=== PATIENT | female | born 1970 | race Caucasian/White ===

== ENCOUNTER 2023-02-07 08:47 | Outpatient (OUT) | payer OTHER, SELFPAY ==
[2023-02-07 09:16] LABS: Basophils Absolute Auto 0.1 10^3/uL (0.0-0.1); Basophils Percent Auto 0.8 % (0.2-2.0); Eosinophils Absolute Auto 0.1 10^3/uL (0.0-0.7); Eosinophils Percent Auto 1.4 % (0.9-7.0); Hematocrit 38.4 % (36.0-48.0); Hemoglobin 12.3 g/dL (12.0-16.0); Immature Granulocytes Abs Auto 0.02 10^3/uL (0.00-0.03); Immature Granulocytes Pct Auto 0.3 % (0.0-0.5); Lymphocytes Absolute Auto 2.6 10^3/uL (1.2-3.8); Lymphocytes Percent Auto 32.2 % (20.5-60.0); Mean Corpuscular Hemoglobin 31.8 pg (26.7-34.0); Mean Corpuscular Volume 99.2 fL (81.0-99.0); Mean Platelet Volume 9.1 fL (9.5-13.5); Monocytes Absolute Auto 0.5 10^3/uL (0.3-0.8); Monocytes Percent Auto 5.9 % (1.7-12.0); Neutrophils Absolute Auto 4.7 10^3/uL (1.4-6.5); Neutrophils Percent Auto 59.4 % (43.0-75.0); Platelet Count 354 10^3/uL (150-450); Red Blood Count 3.87 10^6/uL (4.20-5.40); Red Cell Distribution Width 14.3 % (11.0-15.0)
== END 2023-02-07 08:48 | disposition home or self-care (01) ==
PROVIDERS: PCP Family Medicine
DX: H02.831 Dermatochalasis of right upper eyelid (principal); H02.834 Dermatochalasis of left upper eyelid
CPT/HCPCS: 36415; 85025

== ENCOUNTER 2023-05-06 11:02 | Outpatient (OUT) | payer OTHER, SELFPAY ==
--- NOTE | 2023-05-06 11:09 | XR_ITS ---
The [address] [address] Patient Name: FLOYD HERNANDEZ MRN: [id number] date: 1970 Sex: F Assigned Patient Location: [facility] Current Patient Location: [facility] Accession/Order Number: [id number] Exam Date: 05/06/2023 11:14 Report Date: 05/06/2023 12:14 At the request of: TIARA MATTSON Procedure: XR knee LT 4V EXAM: XR knee LT 4V HISTORY: Right Knee Pain M25.561 COMPARISON: None. TECHNIQUE: 4 views FINDINGS: No acute fracture or dislocation. No significant degenerative changes. Mild soft tissue swelling. XR/XR knee LT 4V IMPRESSION: No acute fracture. Electronically authenticated by: MAHSA TREVINO Date: 05/06/2023 12:14
== END 2023-05-06 11:03 | disposition home or self-care (01) ==
LOC: RAD 11:03
PROVIDERS: PCP Family Medicine; Visit Provider Family Medicine
DX: M25.561 Pain in right knee (principal)
CPT/HCPCS: 73564

== ENCOUNTER 2023-05-20 10:01 | Outpatient (OUT) | payer OTHER, SELFPAY ==
--- NOTE | 2023-05-20 | MM_ITS ---
Patient: FLOYD HERNANDEZ Exam Date: 05/20/2023 : 1970 Gender:F Ordering : DR Vanessa Tena M.D. Admission #: [id number] Family : Order #: [id number] CLICK HERE TO VIEW EXAM RADIOLOGY REPORT PROCEDURE: MM TOMOSYNTHESIS SCREENING BI COMPARISON: MG MAMM SCREEN 3D DONNELL CAD, 03/10/2022. MG MAMM SCREEN 3D DONNELL CAD, 03/05/2021. MG MAMM SCREEN DONNELL W CAD, 06/07/2017. MG MAMM DONNELL SCRN W CAD DIG, 02/18/2014. INDICATIONS: screening mammogram Calculator Name NCI Breast Cancer Risk Assessment Tool 5 Year Breast Cancer Risk 0.80% Lifetime Breast Cancer Risk 6.10% Personal Breast Cancer No Personal Ovarian Cancer No Treatments None Family Cancers None LOCATION: [facility] BREAST COMPOSITION: Scattered areas fibroglandular density. FINDINGS: DIAGNOSTIC CATEGORY 1--NEGATIVE. RIGHT BREAST: No significant suspicious finding. This exam includes additional mammographic views for implant evaluation and shows no visible implant abnormality. No significant change has occurred. LEFT BREAST: No significant suspicious finding. This exam includes additional mammographic views for implant evaluation and shows no visible implant abnormality. No significant change has occurred. RECOMMENDATIONS: ROUTINE MAMMOGRAM AND CLINICAL EVALUATION IN 12 MONTHS. PLEASE NOTE: A NORMAL MAMMOGRAM DOES NOT EXCLUDE THE POSSIBILITY OF BREAST CANCER. A CLINICALLY SUSPICIOUS PALPABLE LUMP SHOULD BE BIOPSIED. Dictated by: Jose David Carlton M.D. on 05/20/2023 at 13:52 Approved by: Jose David Carlton M.D. on 05/20/2023 at 13:55
== END 2023-05-20 10:02 | disposition home or self-care (01) ==
LOC: MAMMO 10:01
PROVIDERS: PCP Family Medicine; Visit Provider Family Medicine
DX: Z12.31 Encounter for screening mammogram for malignant neoplasm of breast (principal)
CPT/HCPCS: 77063; 77067

== ENCOUNTER 2024-06-04 10:03 | Outpatient (OUT) | payer OTHER, SELFPAY ==
--- NOTE | 2024-06-04 10:05 | MM_ITS ---
Patient Name: FLOYD HERNANDEZ MR#: [id number] : 1970 Exam Date: 06/04/2024 Ordering Doctor: DR Vanessa Tena M.D. RADIOLOGY REPORT PROCEDURE: MM TOMOSYNTHESIS SCREENING BI COMPARISON: MG MAMM SCREEN 3D DONNELL CAD, 03/10/2022. MM TOMOSYNTHESIS SCREENING BI, 05/20/2023. INDICATIONS: Screening Calculator Name NCI Breast Cancer Risk Assessment Tool 5 Year Breast Cancer Risk 0.80% Lifetime Breast Cancer Risk 6.00% Personal Breast Cancer No Personal Ovarian Cancer No Treatments None Family Cancers None LOCATION: [facility] BREAST COMPOSITION: There are scattered areas of fibroglandular density. FINDINGS: DIAGNOSTIC CATEGORY 2--BENIGN FINDING. NO CHANGE FROM COMPARISON. This exam includes additional mammographic views for implant evaluation and shows no visible implant abnormality. RIGHT BREAST: No significant suspicious finding. LEFT BREAST: No significant suspicious finding. RECOMMENDATIONS: ROUTINE MAMMOGRAM AND CLINICAL EVALUATION IN 12 MONTHS. PLEASE NOTE: A NORMAL MAMMOGRAM DOES NOT EXCLUDE THE POSSIBILITY OF BREAST CANCER. A CLINICALLY SUSPICIOUS PALPABLE LUMP SHOULD BE BIOPSIED. Dictated by: Thee Christine MD on 06/04/2024 at 13:43 Approved by: Thee Christine MD on 06/04/2024 at 13:45
== END 2024-06-04 10:04 | disposition home or self-care (01) ==
LOC: MAMMO 10:03
PROVIDERS: PCP Family Medicine; Visit Provider Family Medicine
DX: Z12.31 Encounter for screening mammogram for malignant neoplasm of breast (principal)
CPT/HCPCS: 77063; 77067

== ENCOUNTER 2025-06-25 12:30 | Outpatient (OUT) | payer OTHER, SELFPAY ==
--- OUTSIDE RECORDS SUMMARY | 2025-06-25 12:34 | XMS_ITS | CCD ---
Author Organization [facility] Care Team Providers Care Night Custodian Name Role Phone DR TIARA MATTSON Attending Unavailable DASHA, DR HELADIO Prado Consulting Unavailable SRINIVASAN, DR TIARA Catalan Primary Care Unavailable MATTSON, DR TIARA Catalan Admitting Unavailable MATTSON, DR TIARA Catalan Consulting Unavailable GONZALEZ, DR BERNABE Attending Unavailable GONZALEZ, DR BERNABE Consulting Unavailable GONZALEZ, DR BERNABE Admitting Unavailable MATTSON, DR TIARA Catalan Primary Care Unavailable MATTSON, DR TIARA Catalan Attending Unavailable SRINIVASAN, DR TIARA Catalan Consulting Unavailable SRINIVASAN, DR TIARA Catalan Primary Care Unavailable SRINIVASAN, DR TIARA Catalan Admitting Unavailable ALBERTO OCONNELL Admitting Unavailable [place], DR [place] Consulting Unavailable ALBERTO OCONNELL Attending Unavailable SRINIVASAN, DR TIARA Catalan Primary Care Unavailable GLENDA ROGERS Consulting Unavailable Tiara Mattson Unavailable MD Tiara Mattson Attending Provider NO FAMILY, PHYSICIAN Primary Care Provider Unava Tiara Hawkins MD Primary Care Provider Vanda Hinton DO Attending Provider Tiara Mattson MD Primary Care Provider Vanda Hinton Admitting Unavailable Vanda Hinton Attending Unavailable Tiara Mattson Primary Care Unavailable NO FAMILY, PHYSICIAN Primary Care Unavailable Tiara Mattson Admitting Unavailable Tiara Mattson Attending Unavailable Tiara Mattson MD Primary Care Provider [phone] Tiara Mattson MD Primary Care Provider SHARIF SANDERSON Attending Unavailable FAISAL MORELOS Attending Unavailable JR. MCGOWAN GEORGE C Attending Unavaillauren MCGOWAN JR., FREDRICK Mendoza Referring Unavaila SARAH Vasquez Attending Unavailable AGUSTÍN NEAL Attending Unavailable AGUSTÍN NEAL Attending Unavailable Tiara Mattson MD Primary Care Provider Tiara Mattson MD Attending Provider Tiara Mattson MD Primary Care Provider Tiara Mattson MD Attending Provider [phone] Kim Lubin APRN Attending Provider CHILANGO QURESHI Admitting Unavailable CHILANGO QURESHI Attending Unavailable FREDRICK MCGOWAN Referring Unavailable CHILANGO QURESHI Attending Unavailable CHILANGO QURESHI Attending Unavailable FREDRICK MCGOWAN Referring Unavailable Allergies Allergy ClassificationReported Allergen(s)Allergy TypeDate of OnsetReaction(s) Facility (20 sources)varenicline; Translations: [VARENICLINE]Drug Bhehjxf72-02-3669Hjuwp [facility] (2 sources)patient allergy list reviewed by nurse or physiciaPropensity to adverse mcqvbxwew06-62-1815Skuplsv:[facility] Other (2 sources)Allergies ReconciledPropensity to adverse reactionsAddison Gilbert HospitalInteliVideo Other (1 source)vareniclineDrug Sfnioyz11-33-3771JuobjrsrmHenry County [facility] Medications Current Medications MedicationDrug Class(es)DatesSig (Normalized)Sig (Original)acyclovir 400 mg oral tablet (20 sources)Herpesvirus Nucleoside Analog DNA Polymerase Inhibitor, Herpes Simplex Virus Nucleoside Analog DNA Polymerase Inhibitor, Herpes Zoster Virus Nucleoside Analog DNA Polymerase InhibitorStart: 77-03-7379wtrw 1 tablet by mouth three times dailyAcyclovir 400 mg tablet Active 800 MG PO Three times daily October 23, 2024 12:00am Complies with drug therapyStart: 10-07-2023 End: 80-92-4886onmi 2 tablets by mouth three times daily as neededAcyclovir 400 mg tablet Discontinued 0 PO .COMPLEX October 07, 2023 1:00am October 10, 2023 9:50am TAKE 2 TABLETS THREE TIMES DAILY NEEDEDAcyclovir 400 mg TAKE 2 TABLETS THREE TIMES DAILY NEEDED FOR 3 DAYS ActiveAcyclovir 5 % 1 application every 3 hours Externally Six times a day for 4 days [id number] 200 actuat albuterol 0.09 mg/actuat metered dose inhaler (9 sources)beta2-Adrenergic AgonistStart: 36-60-6392vxpt 2 puff(s) by inhalation four times daily as neededAlbuterol Sulfate HFA 108 (90 Base) MCG/ACT 2 puffs Inhalation qid prn Jun, ActiveStart: 49-00-5570eskr 2 puff(s) by inhalation four times daily as neededAlbuterol Sulfate HFA 108 (90 Base) MCG/ACT 2 puffs Inhalation qid prn Jun, Activeamoxicillin 875 mg / clavulanate 125 mg oral tablet (20 sources)Penicillin-class AntibacterialStart: 55-09-3486fhcg 1 tablet by mouth twice dailyAmoxicillin-Pot Clavulanate 875-125 mg tablet Active 1 TAB PO Twice daily 27 05March 20, 2025 12:00am Complies with drug therapyStart: 10-10-2023 End: 72-65-1043ydci 1 tablet by mouth twice dailyAmoxicillin-Pot Clavulanate 875-125 mg tablet Discontinued 1 TAB PO Twice daily October 10, 2023 1:00am December 08, 2023 11:20amStart: 03-15-7323hkmt 1 tablet by mouth every twelve hours Amoxicillin-Pot Clavulanate 875-125 MG 1 tablet Orally every 12 hrs for 10 day(s) Sep, Activeazithromycin 250 mg oral tablet (2 sources)Macrolide AntimicrobialStart: 72-66-8021Qdrkxshigjnv 250 MG as directed Orally 2 tabs po today, then 1 tab daily x 4 more days for 5 May, Activebenzonatate 200 mg oral capsule (1 source)Non-narcotic AntitussiveStart: 71-40-8755vpih 1 capsule by mouth three times daily as needed for coughBenzonatate 200 mg capsule Active 200 MG PO Three times daily as needed for cough 06 06March 20, 2025 12:00am Complies with drug therapyciprofloxacin 3 mg/ml ophthalmic solution (9 sources)Quinolone AntimicrobialStart: 91-70-0506Gpqfvji 0.3 % 2 drops both eyes every 4 hrs for 7 days 2 drops to each eye every 2 hours while awake today and tomorrow, then 2 drops to each eye 3-4 times a day for another 3 or 4 days. Jun,ctivecitalopram 40 mg oral tablet (20 sources)Serotonin Reuptake InhibitorStart: 84-67-5590Yciibhbdrm 40 mg tablet Active 0 .ROUTE .COMPLEX May 10, 2024 10:26am TAKE 1 TABLET DAILY Co mplies with drug therapyStart: 63-58-3925Nynweilezm 40 mg tablet Active 0 .ROUTE .COMPLEX May 10, 2024 10:26am TAKE 1 TABLET DAILYStart: 05-10-2024 Citalopram 40 mg tablet Active 0 .ROUTE .COMPLEX May 10, 2024 9:26am TAKE 1 TABLET DAILYStart: 10-07-2023 End: 81-74-8945mjag 1 tablet by mouth once dailyCitalopram 40 mg tablet Discontinued 40 MG PO Daily October 07, 2023 1:00am May 10, 2024 10:26amtake 1 tablet by mouth every twenty-four hoursCeleXA 20 MG 1 tablet Orally Once a day ActiveCitalopram Hydrobromide Not-TakingpredniSONE 20 mg oral tablet (10 sources)Start: 92-87-1259rrjv 2 tablets by mouth every twenty-four hours predniSONE 20 MG 2 tablets Orally Once a day for 5 days Apr, Active Start: 51-71-5845ffou 1 tablet by mouth every twelve hourspredniSONE 20 MG 1 tablet Orally bid for 5 day(s) Jun, ActiveScopolamine Base 1 mg over 3 days patch 3 day (1 source)Start: 04-85-1274Qiitktwptye Base 1 mg over 3 days patch 3 day Active 1 PATCH TRANSDERML Every 72 hours as needed for motion sickness December 03, 2024 12:00am Completed/Discontinued Medications MedicationDrug Class(es)DatesSig (Normalized)Sig (Original)cefdinir 300 mg oral capsule (9 sources)Cephalosporin AntibacterialStart: 05-10-2024 End: 30-95-6605vpqe 1 capsule by mouth twice dailyCefdinir 300 mg capsule Discontinued 300 MG PO Twice daily August 07, 2024 1:00am August 21, 2024 9:14amfluconazole 150 mg oral tablet (9 sources)Azole AntifungalStart: 10-10-2023 End: 63-36-0396Dnwkszktoqv 150 mg tablet Discontinued 150 MG PO Q3D October 10, 2023 1:00am December 08, 2023 11:20amibuprofen 800 mg oral tablet (20 sources)Nonsteroidal Anti-inflammatory DrugStart: 11-17-2022 End: 12-72-3764jzlr 1 tablet by mouth three times daily as needed for pain Ibuprofen 800 mg tablet Discontinued 800 MG PO Three times daily as needed for pain October 0641:00am October 09, 2024 1:35pmIbuprofen 800 MG 1 tablet every 8 hours prn ActiveIbuprofen Not-TakingOmeprazole (10 sources)Proton Pump InhibitorOmeprazole Not-Takingpantoprazole 40 mg delayed release oral tablet (20 sources)Proton Pump InhibitorStart: 05-08-2024 End: 53-14-5653imzs 1 tablet by mouth once dailyPantoprazole 40 mg tablet,delayed release (DR/EC) Discontinued 0 .ROUTE .COMPLEX November 05, 2024 9:07am January 09, 2025 10:34am TAKE 1 TABLET BY MOUTH EVERY DAYStart: 04-26-2023 End: 82-87-7879yoxb 1 tablet by mouth once dailyPantoprazole 40 mg tablet,delayed release (DR/EC) Discontinued 40 MG PO Daily October 07, 2023 1:00am February 10, 2024 3:56pmrimegepant 75 mg disintegrating oral tablet (20 sources)Start: 01-24-2024 End: 68-50-5349Qzahfaxaqg (Nurtec Odt) 75 mg tablet,disintegrating Discontinued 0 .ROUTE .COMPLEX October 09, 2024 1:35pm January 09, 2025 10:34am PLACE 1 TABLET ON TONGUE ONCE EVERY DAY NEEDEDStart: 10-06-2023 End: 43-92-6653Hyxwaqxswb (Nurtec Odt) 75 mg tablet,disintegrating Discontinued 0 .ROUTE .COMPLEX 30 November 10:59am December 08, 2023 11:21am DISSOLVE 1 TABLET ON THE TONGUE ONCE EVERYDAY NEEDEDStart: 05-04-2023 End: 56-74-1376iatu 1 tablet by mouth once as neededRimegepant (Nurtec Odt) 75 mg tablet,disintegrating Discontinued 75 MG PO Once as needed October 05, 2023 1:00am October 06, 2023 9:32amStart: 05-04-2023 End: 60-76-8759Szhueezjis (Nurtec Odt) 75 mg tablet,disintegrating Discontinued 75 MG PO Every 48 hours November 12:00am January 24, 2024 8:35am72 hr scopolamine 0.0139 mg/hr transdermal system (14 sources)AnticholinergicStart: 70-68-6306glalyvrhfuo (Transderm-Scop) 1 mg/72 hr patch 72 hour patch 12/03/2024 ActiveStart: 12-03-2024 End: 88-30-3463Xmbztnvvkoo Base 1 mg over 3 days patch 3 day Discontinued 1 PATCH TRANSDERML Every 72 hours as needed for motion sickness February 11, 2025 4:28pm March 20, 2025 1:31pmsulfamethoxazole 800 mg / trimethoprim 160 mg oral tablet (19 sources)Dihydrofolate Reductase Inhibitor Antibacterial, Sulfonamide AntimicrobialStart: 12-08-2023 End: 76-98-3876juys 1 tablet by mouth twice dailySulfamethoxazole-Trimethoprim 800-160 mg tablet Discontinued 1 TAB PO Twice daily May 07, 2024 3:45pm May 10, 2024 8:57amtake 1 tablet by mouth every twelve hoursBactrim DS 800-160 MG 1 tablet Orally Twice a day for 5 days ActivetiZANidine 4 mg oral tablet (20 sources)Central alpha-2 Adrenergic AgonistStart: 96-28-4738nuUBEqmpdp (Zanaflex) 4 MG tablet 03/19/2024 ActiveStart: 02-20-2024 End: 34-05-0931hthu 1 tablet by mouth at bedtime as needed for muscle spasms Tizanidine 4 mg tablet Discontinued 0 .ROUTE .COMPLEX December 03, 2024 3:00pm February 11, 2025 4:28pm TAKE 1 TABLET BY MOUTH AT BEDTIME NEEDED FOR MUSCLE SPASMStart: 03-05-3865iwbw 1 tablet by mouth at bedtime as needed for muscle spasmsTizanidine Active 0 .ROUTE .COMPLEX February 20, 2024 10:04am TAKE 1 TABLET BY MOUTH AT BEDTIME ASNEEDED FOR MUSCLE SPASMStart: 10-07-2023 End: 33-16-6161tfnl 1 tablet by mouth once daily at bedtime as neededTizanidine 4 mg tablet Discontinued 4 MG PO Daily at bedtime as needed October 07, 2023 1:00am February 20, 2024 10:04amtake 1 tablet by mouth at bedtime as needed for muscle spasmstiZANidine HCl 4 MG TAKE 1 TABLET AT BEDTIME NEEDED FOR MUSCLE SPASM Orally for 90 days ActivetiZANidine HCl Not-Takingtriamcinolone acetonide 40 mg/ml injectable suspension (5 sources)CorticosteroidStart: 25-43-5111Xydehhh-40 Feb, 60 mg Problems Active Problems Problem ClassificationProblemDateDocumented DateEpisodic/ChronicAcute bronchitis (4 sources)Acute bronchitis; Translations: [Acute bronchitis due to other specified organisms]Onset: 03-79-7295FgusbfqpGmdkvpgm reactions (14 sources)Unspecified contact dermatitis due to plants, except food; Translations: [Contact dermatitis due toplants]EpisodicAnxiety disorders (2 sources)Anxiety state; Translations: [Anxiety state, unspecified]Onset: 02-62-8436FeppzxhZhccjhtagw disorders (20 sources)Gastroesophageal reflux disease; Translations: [Gastro-esophageal reflux disease without esophagitis]Onset: 683896-54-5002Miifzrl Genitourinary symptoms and ill-defined conditions (15 sources)Dysuria; Translations: [Dysuria]Onset: 80-07-2473OnrfymyvJkrhqqvw; including migraine (20 sources)Migraine without aura, not refractory ; Translations: [Other migraine, not intractable, without status migrainosus]Onset: 02-14-2017 32-49-4670GcnvsliTflnnjsydfkxj and screening for infectious disease (2 sources)Contact with and (suspected) exposure to other viral communicable diseases; Translations: [Contact with and (suspected) exposure to COVID-19] EpisodicNeoplasms of unspecified nature or uncertain behavior (2 sources)Neoplastic disease; Translations: [Neoplasm of unspecified behavior of bone, soft tissue, and skin]83-05-7380YxqgyvyvGstnwjlpqme chest pain (14 sources)Atypical chest pain; Translations: [Other chest pain]EpisodicOther and unspecified benign neoplasm (2 sources)Melanocytic nevus of trunk; Translations: [Melanocytic nevi of trunk] 86-27-8537NlqmshcaQyadp connective tissue disease (6 sources)Ganglion cyst of the right volar wrist; Translations: [Ganglion, right wrist]39-00-4956KrnvtvzaSdzku connective tissue disease (2 sources)Ganglion, unspecified site; Translations: [Ganglion, unspecified site]Onset: 44-11-2133BhqieyqtWaxal connective tissue disease (2 sources)Ganglion, right wrist; Translations: [Ganglion, right wrist]Onset: 72-79-3824VxaddfwiEaqup injuries and conditions due to external causes (3 sources)Motion sickness; Translations: [Motion sickness, initial encounter] 45-40-3749HcmgeysjPweqp lower respiratory disease (6 sources)Cough; Translations: [Cough]99-77-1019KadoducfFpyke non-epithelial cancer of skin (2 sources)Squamous cell carcinoma of upper extremity; Translations: [Squamous cell carcinoma of skin of left upper limb, including shoulder]95-42-1839Gngvnrgj Other non-traumatic joint disorders (1 source)Pain in right kneeEpisodicOther non-traumatic joint disorders (2 sources)Pain of right wrist; Translations: [Pain in right wrist]12-07-2024 EpisodicOther nutritional; endocrine; and metabolic disorders (2 sources)Body mass index 25-29 - overweight; Translations: [Body mass index (BMI) 28.0-28.9, adult]EpisodicOther screening for suspected conditions (not mental disorders or infectious disease) (9 sources)Encounter for screening mammogram for malignant neoplasm of breast; Translations: [Patient encounter status]Onset: 81-34-2485PratxsjmZnoyl skin disorders (4 sources)Inflamed seborrheic keratosis; Translations: [Inflamed seborrheic keratosis]80-37-4432FzegeuhpUqrsv skin disorders (3 sources)Disorder of skin of upper limb; Translations: [Disorder of the skin and subcutaneous tissue, unspecified]64-84-9087HyttryvyKjqml upper respiratory disease (18 sources)Seasonal allergic rhinitis; Translations: [Other seasonal allergic rhinitis]Onset: 080912-31-2225RpzpmutMvfgl upper respiratory disease (1 source)Other seasonal allergic rhinitisChronicOther upper respiratory infections (4 sources)Chronic sinusitis; Translations: [Chronic sinusitis, unspecified] 70-41-6996VqwemouZyeuc upper respiratory infections (17 sources)Acute maxillary sinusitis, unspecified; Translations: [Acute maxillary sinusitis]EpisodicOtitis media and related conditions (2 sources)Otitis media; Translations: [Otitis media, unspecified, unspecified ear]EpisodicResidual codes; unclassified (4 sources)Tobacco user; Translations: [Nondependent tobacco use disorder]Onset: 96-68-0550CammoqidGjiebivwrxk; intervertebral disc disorders; other back problems (8 sources)Low back pain; Translations: [Low back pain]Onset: 51-79-2580Eqsqknpl Substance-related disorders (1 source)Nicotine dependence, cigarettes, uncomplicated; Translations: [NICOTINE DEPEND CIGARETTES UNCOMP]Onset: 35-82-6567XwkaqkiScxawfhqrfci (3 sources)CONTACT W/AND (SUSP) EXPOS COVID-19; Translations: [CONTACT W/AND (SUSP) EXPOS COVID-19]Onset: 71-96-7805Reddjkygqrme (2 sources)Acute candidiasis of vulva and vagina; Translations: [Acute candidiasis of vulva and vagina]Onset: 26-23-2491Qcgdsusajnjj (2 sources)Post-op; Translations: [Post-op]Onset: 38-70-9867Thulqnn tract infections (5 sources)Urinary tract infection, site not specified; Translations: [Escherichia coli urinary tract infection]Onset: 161604-16-6154Uwrrubvd Viral infection (20 sources)Herpes simplex otitis externa; Translations: [Herpesviral vesicular dermatitis]EpisodicViral infection (2 sources)Disease caused by 2019-nCoV; Translations: [COVID-19] Past or Other Problems Problem ClassificationProblemDateDocumented DateEpisodic/ChronicOther aftercare (1 source)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; Translations: [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 DRIVER CURRENT DRUG THERAPY]Onset: 60-56-0531EbjdjlgrMslfs skin disorders (2 sources)Seborrheic keratosis; Translations: [Other seborrheic keratosis] 73-71-1095XkideploQxbzjccp codes; unclassified (1 source)Acquired absence of both cervix and uterus; Translations: [ACQUIRED ABSENCE BOTH CERVIX AND UTERUS]Onset: 30-29-3356EbmqyvwpIagbahn (4 sources)Syncope and collapse; Translations: [SYNCOPE AND COLLAPSE]Onset: 49-23-4706GsbtxbubBtwqjvjbrqxb (1 source)CONTACT W/AND (SUSP) EXPOS COVID-19; Translations: [CONTACT W/AND (SUSP) EXPOS COVID-19]Onset: 57-51-5121Cjvkyedbbzyw (12 sources)Plastic surgery; Translations: [Plastic surgery, other]Unclassified (7 sources)Lumbar back pain; Translations: [Lumbar back pain] Results Test NameValueInterpretationReference RangeFacilityOffice Visiton 04-10-2025 Follow-up [id number] Kim Crane 1970 F Date Provider Department Center 04/10/2025 CHILANGO MILLS [facility]O No family history on file Level of Service:65894 DE POSTOP FOLLOW UP VISIT RELATED TO ORIGINAL PX Reason for Visit and Comments: [facility] [483][facility] NURSNOTEPT BROUGHT TO PRE OP PER TIEN ORLANDO WEIGHED BAND BROUGHT TO SLOT # INSTRUCTIONS TO REMOVES ALL PERSONAL BELONGINGS INCLUDING JEWELRY AND PLACE IN BAG, THEN PUT ON GOWN, CLIMB ONTO THE STRETCHER AND COVER UP TIEN PARKERBSNNEast Liverpool City HospitalOPNOTDignity Health [facility] 78-42-6627XZLSJOGauvu Wrist Ganglion Patient: Kim Crane Date of Surgery: 03/27/2025 : 1970 Pre-operative Diagnosis: Volar Ganglion right Wrist Post-operative Diagnosis: same Operation: Excision of ganglion right wrist (32944 recurrent) Surgeon: Chilango Qureshi MD Blower Insulator: Niurka Treadwell MD Staff: Gambling Dealer: Martha Betacnur RN Scrub Person: Aura Hughes CST Anesthesia Type: Regional Indications: The patient is an 54 y.o. female with a mass over the volar side of the right wrist. On physical examination, this is consistent with a classic volar wrist ganglion. She has a history of having this excised a number of years ago but it has apparently recurred. The mass is causing discomfort, and is interfering with routine daily activities. We discussed options for treatment, and it was felt that surgical excision was appropriate. She is brought to the operating room today for that purpose, the risks and benefits of which have been explained prior to surgery, and with good understanding it is agreed to proceed. Procedure: The patient is brought to the operating room and placed on the table in a supine position. An axillary block had been administered per the anesthesia service in the holding area. A tourniquet is placed around the proximal right arm. Preoperative antibiotics were given and the arm is prepped and draped out in a sterile fashion. To begin the procedure, after a standard timeout, the right arm is exsanguinated with an Esmarch bandage and the tourniquet is inflated to 250 mmHg. Using a 15 blade, a longitudinal incision is made on the volar radial aspect of the wrist in line with the FCR tendon and centered over the mass. she had a previous S shaped incision that we elected not to use. Blunt dissection is carried out through the subcutaneous tissue. Superficial blood vessels are cauterized with the Bovie. The mass is encountered and is consistent with a classic ganglion cyst. The cyst it is multiloculated and approximately 1 cm in diameter. The radial artery was identified proximal to the ganglion and dissected free, then protected with Ragnell retractors. There were a couple of small branches coming off the radial artery that we dissected out as best we could but 1 was cauterized and sacrificed to gain exposure. The cyst dissected out from the surrounding soft tissues fairly easily. Ragnell retractors were used to gain exposure, and protect the surrounding soft tissues. As we started dissecting around the cyst, the cyst was ruptured and it is filled with thick mucinous fluid, consistent with our diagnosis. Once we had the cyst ruptured, the stalk is dissected down to the volar wrist capsule. The stalk was transected at that point using a Bovie and the cyst was removed. The area from where the cyst originated was cauterized with the Bovie to hopefully cause some scar formation and prevent recurrence. Because we did so much dissection around the radial artery, the tourniquet was released. There was a small thelma in the artery that we closed with 1 suture of 6-0 Prolene. That controlled the bleeding. There was a small branch that we had sacrificed earlier that was still bleeding a bit and that was cauterized. The wound is irrigated with normal saline solution. The skin with a running subcuticular 4-0 Prolene suture. A sterile dressing of benzoin and Steri-Strips, 4 x 4 fluffs, Selvin and an Mati bandage is applied. All sponge and needle counts were correct at time of closure. The drapes were removed and the arm is placed into a sling because of the regional block. She is brought to the recovery room in stable condition, having tolerated the procedure well. Findings: standard recurrent ganglion cyst Estimate Blood Loss: Minimal Specimens: No specimens collected Complications: None Disposition: PACU Condition: stable Chilango Qureshi MDNormalUniversGeorgetown Behavioral HospitalPOCT GLUCOSE METER UNSOLICITED RESULTSon 42-84-6310Otsifha [Mass/Vol]90 mg/jZOoqrpd57-042RynfksboovSelect Medical Specialty Hospital - [facility] NorthComment on above:Order Comment: Waived Testing in the ED is performed under the ED CLIA certificate #[id number].Result Comment: ltollesPerformed By: #### [id number] #### [facility] ([facility]) [address], [place] [address]BKbq 72-23-0366CTRehgyvx Of Present Illness Kim Crane is a 54 y.o. female presenting for EXCISION VOLAR WRIST GANGLION CYST (R). Symptoms unchanged compared to previous evaluations. No recent changes in overall health. No new additional changes or concerns today. Past Medical History She has a past medical history of Arthritis, Arthritis of left knee, Depression, Ganglion cyst of volar aspect of right wrist, Neoplasm of unspecified behavior of bone, soft tissue, and skin, and Squamous cell cancer of skin of forearm, left. Surgical History She has a past surgical history that includes Hysterectomy; Knee surgery (Left); Flexible sigmoidoscopy; and Colonoscopy. Social History She reports that she has been smoking cigarettes. She has a 7.5 pack-year smoking history. She has never used smokeless tobacco. She reports that she does not drink alcohol and does not use drugs. Family History Family History[1] Allergies Patient has no known allergies. Medications Prescriptions Prior to Admission[2] Review of Systems Negative except reported in HPI Last Recorded Vitals Visit Vitals Smoking Status Every Day Physical Exam Right Hand: Inspection- no ecchymosis, no erythema, no deformity Prior incision line over the dorsal radial wrist well-healed. Soft tissue mass present, mobile, nontender to palpation, 2cm in diameter. Index and long finger have palpable nodules proximal to the A1 carleen, no tenderness, no triggering. Strength: benefits clerk 5/5, thumb 5/5, interossei 5/5 Sensation: intact over median, ulnar, and radial nerve distributions Tinel (+) at carpal tunnel, Carpal compression test (-), and Tarik's test (-) Cardiovascular: Well-perfused digits Imaging personally reviewed: No imaging reviewed today. Relevant Lab Results No results found for: NA , K , CL , CO2 , BUN , CREATININE , GLUCOSE , CALCIUM , ANIONGAP , EGFR , BCR Relevant Imaging Results No image results found. Assessment/Plan Kim Crane is a 54 y.o. female presenting for EXCISION VOLAR WRIST GANGLION CYST (R). Proceed with procedure as planned. NIURKA TREADWELL MD Orthopaedic Surgery, Resident 03/26/25 1:42 PM [1] No family history on file. [2] No medications prior to admission.NormalProMedica [facility] Office Visiton [id number]-up [id number] Kim Crane 1970 F Date Provider Department Center 01/22/2025 [facility] MP ORTHO MPORTHO No family history on file Level of Service:61099 DE OFFICE/OUTPATIENT NEW LOW MDM 30 MINUTES Reason for Visit and Comments: Pain [136][facility] Panel Informationon 35-77-9846Pbcqhnsbgd: Intermediate Final length (cm): 2.8 Reason for type of repair: allow closure of the large defect Undermining: edges undermined Undermining comment: The surrounding tissue was undermined until the skin edges could be approximated without undue tension. Any tissue redundancies were removed. Subcutaneous layers (deep stitches): Suture size: 4-0 Suture type: Monocryl (poliglecaprone 25) Stitches: Buried horizontal mattress (Closure was performed in a layered fashion with subcutaneous tissue closed first using tension-bearing absorbable sutures to the level of the superficial fascia.) Fine/surface layer approximation (top stitches): Suture size: 4-0 Suture type: Monocryl (poliglecaprone 25) Stitches: running subcuticular Stitches comment: Epicuticular skin sutures were then placed with minimal tension. Steri strips applied. Outcome: patient tolerated procedure well with no complications Post-procedure details: sterile dressing applied and wound care instructions given Post-procedure details comment: It was emphasized to the patient to contact the office for any signs of infection, uncontrollable bleeding, or complications. Dressing type: bandThedaCare Regional Medical Center–NeenahLesion length (cm): 1.2 Lesion width (cm): 0.7 Margin per side (cm): 0.4 Total excision diameter (cm): 2 Informed consent: discussed and consent obtained Informed consent comment: Risks and possible complications were discussed as noted on the consent form. The consent form was signed prior to the procedure. Timeout: patient name, date of , surgical site, and procedure verified Timeout comment: Patient and provider identified site. Site was marked and excision was drawn out. Photo was taken and shown to patient, patient verified this is the correct site. Procedure prep: Patient was prepped and draped in usual sterile fashion (The planned incision lines were drawn along relaxed skin tension lines, if possible, to minimize scarring and deformity of surrounding structures.) Prep type: Chlorhexidine Anesthesia: the lesion was anesthetized in a standard fashion Anesthesia comment: The local anesthetic was injected to create a field block at the site of the procedure. Anesthetic: 1% lidocaine w/ epinephrine 1-100,000 buffered w/ 8.4% NaHCO3 Instrument used: #15 blade Instrument used comment: Incisions were made as drawn, and the surrounding tissue was undermined until the skin edges could be approximated without undue tension. Any tissue redundancies were removed. Hemostasis achieved with: electrodesiccation Additional details: Amount of lidocaine used: 6.0 ml Estimated blood loss: < 1.0 [facility] Panel InformationOrdered By: Ria Ludwig on 20-16-1510TGGHChildren's [facility]cy [facility] Panel Informationon [id number] of biopsy: tangential Informed consent: discussed and consent obtained Informed consent comment: The risks and benefits of the biopsy were discussed. Risks include but are not limited to bleeding, infection, scarring, pain, and nerve damage. An opportunity to ask questions prior to the procedure was permitted and all questions were answered. Patient was prepped and draped in usual sterile fashion: area cleansed with alcohol. Anesthesia: the lesion was anesthetized in a standard fashion Anesthetic: 1% lidocaine w/ epinephrine 1-100,000 buffered w/ 8.4% NaHCO3 Instrument used: DermaBlade Hemostasis achieved with: electrodesiccation Outcome: patient tolerated procedure well Outcome comment: The specimen was placed in a prelabeled formalin container to be sent for pathology Post-procedure details: sterile dressing applied and wound care instructions given Post-procedure details comment: Emphasized need to contact clinic for any signs of infection, uncontrollable bleeding, or complications. Dressing type: bandage Additional details: Photo taken Amount of lidocaine used: 1.0 [facility]No Panel InformationOrdered By: Rox Gómez on [id number]24L Specimen: [id number] Received: 08/21/24 Status: POLINA Hurst Num: [id number] Spec Type: Surgical Subm Dr: Vanda Hinton DO Tissues: A Colon Biopsy (ASCENDING POLYP X2) B Colon Biopsy (CECAL POLYP) Procedures: HE/Gustavo, Gross/Micro L4/2 Age/ Patient Sex Location Account Attending Physician Kim Crane 54/F [id number] Vanda L Ly, DO SPEC NUM: RECD: 08/21/24 STATUS: POLINA HURST NUM: [id number] ANGELA: 08/21/[address]: Vanda Hinton DO ENTERED: 08/21/[address] [facility] DR: YADIRA TYPE: Surgical DEPT: S ENTERED BY: [id number] RECV BY: [id number] ORDERED: HE/6, Gross/Micro L4/2 ORDERED: HE/6, Gross/Micro L4/2 Pathological Diagnosis A. Colon, ascending, polypectomy: - Fragments of tubular adenoma B. Colon, cecum, polypectomy: - Fragments of tubular adenoma. Clinical Information Screen Gross Description Part A is received in formalin labeled with the patients name, date of , and ascending polyp are two santillan-arvizu, focally erythematous, friable, 0.4 and 0.8 cm in greatest dimension polypoid fragments. The largest specimen is inked black at the apparent point of attachment, serially sectioned, and entirely submitted in A1 with the smaller polyp submitted intact in cassette A2. (2, ns, S25-1 96A)J Part B is received in formalin labeled with the patients name, date of , and cecal polyp are six santillan-arvizu, focally erythematous, friable, 0.2 to 0.4 cm in greatest dimension polypoid fragments. The specimen is entirely submitted in a single cassette. (1, ns, B) JG Specimen: Received: 08/21/24 Status: CASSIDYSharmila Hurst Num: [id number] Spec Type: Surgical Subm Dr: Vanda Hinton DO Tissues: A Colon Biopsy (ASCENDING POLYP X2) B Colon Biopsy (CECAL POLYP) Procedures: Cory BETTS/Micro L4/2 Patient: Kim Crane [id number] (Continued) Specimen: Received: 08/21/24 (Continued) Signed (signature on file) Sachin Cruz MD 08/22/24 1058 Specimen: Received: 08/21/24 Status: CASSIDYSharmila Hurst Num: [id number] Spec Type: Surgical Subm Dr: Vanda Hinton DO Tissues: A Colon Biopsy (ASCENDING POLYP X2) B Colon Biopsy (CECAL POLYP) Procedures: LISETHCory Chen/Micro L4/2 Patient: Kim Crane Juan A [id number] (Continued) Specimen: S2 Received: 08/21/24 (Continued) Microscopic Description A B: Microscopic examination is performed CPT Codes 15459 x2 Specimen: S2 Received: 08/21/24 Status: POLINA Hurst Num: [id number] Spec Type: Surgical Subm Dr: Vanda Hinton DO Tissues: A Colon Biopsy (ASCENDING POLYP X2) B Colon Biopsy (CECAL POLYP) Procedures: HE/6, Gross/Micro L4/2 Patient: Kim Crane Juan A [id number] (Continued) Signed (signature on file) Sachin Cruz MD 08/22/24 1058Normal The Count Includes [facility] Physician GroupNo Panel Informationon [id number] Leonard Wood [facility] Laboratory - Microbiology and Antimicrobial susceptibilityOrdered By: Tiara Mattson on 61-45-1164Jxdrbstm identified Cx Nom (U)Escherichia coli (MDRO)[facility] Cultureon 66-82-3074Gkdnxgzb identified Cx Nom (U)ORGANISM: Escherichia coli (MDRO) (O:ESCCOLMDRO) [place] Count 75,000 Aerobic AARON Charge (NMIC56) SUSCEPTIBILITY ORGANISM: O:ESCCOLMDRO ANTIBIOTIC INTERPRETATION AARON Amikacin S <16 Amoxacillin/K Clavulanate I 1616/8 Ampicillin R >16 Ampicillin/Sulbactam R >16 Aztreonam S <4 Cefazolin S 4 Cefepime S <2 Ceftazidime S <1 Ceftazidime/Avibactam S <4 Ceftolozane/Tazobactam S <2 Ceftriaxone S <1 Cefuroxime S 8 Ciprofloxacin R >2 Ertapenem S <0.5 Gentamicin S <2 Levofloxacin R >4 Meropenem S <1 Meropenem/Vaborbactam S <2 Nitrofurantoin S <32 Piperacillin/Tazobactam S <8 Tetracycline R >8 Tigecycline S <2 Tobramycin S <2 Trimethoprim/Sulfamethoxazole R >2 S = SUSCEPTIBLE I = INTERMEDIATE R = RESISTANT BLANK = DATA NOT AVAILABLE, OR DRUG NOT ADVISABLE OR TESTED R* = RESISTANCE DUE TO EXTENDED SPECTRUM BETA-LACTAMASES ESBL = EXTENDED SPECTRUM BETA-LACTAMASE TFG = THYMIDINE-DEPENDENT STRAIN BLADE = BETA-LACTAMASE POSITIVE IB = INDUCIBLE BETA-LACTAMASE. APPEARS IN PLACE OF 'S' WITH SPECIES KNOWN TO POSSESS INDUCIBLE BETA-LACTAMASES. POTENTIALLY THEY MAY BECOME RESISTANT TO ALL B-LACTAM DRUGS. PERFORMED BY: [facility] [address] [place] [address] PATHOLOGIST SPEECH THERAPIST EARLY INTERVENTION YARITZA ALMENDAREZ M.D.[facility] Physician GroupComment on above:Performed By: #### CUU #### [facility] [address] [place] [address] USANo Panel Informationon 59-68-5398KWVM HealthcareBasophils Auto (Bld) [#/Vol]on 28-57-4699Tnqdvtawu (Bld) [#/Vol]0.1 10 3/uL0.0-0.1 [facility] HospitalBasophils/100 WBC Auto (Bld)on 03-23-2024 Basophils/100 WBC (Bld)0.8 %0.2-2.0[facility] HospitalCholesterol in LDL Calc [Mass/Vol]on 07-77-2160Ysjhcthxszs in LDL [Mass/Vol]123.0 mg/dL [facility] HospitalComment on above:<100 mg/dl DGANPFM860-850 mg/dl NEAR OR ABOVE SNKYNQI305-808 mg/dl BORDERLINE HUIH834-240 mg/dl HIGH>190 mg/dl VERY HIGHCholesterol in VLDL Calc [Mass/Vol]on 62-49-5082Zrtdxwyrpvi in VLDL [Mass/Vol]10.2 mg/dLHenry County HospitalEosinophils/100 WBC Auto (Bld)on 56-02-3377Feqmectrcoh/100 WBC (Bld)2.0 %0.9-7.0[facility] HospitalErythrocyte distribution width Auto (RBC) [Ratio]on 03-23-2024 Erythrocyte distribution width (RBC) [Ratio]14.5 %11.0-15.0[facility] HospitalEstimated glomerular filtration rate (GFR) non- Americanon 86-00-5137XBI/1.73 sq M.predicted among non-blacks MDRD (S/P/Bld) [Vol rate/Area]mL/min/{1.73_m2}>=60[facility] HospitalGlobulin Calc (S) [Mass/Vol]on 66-79-9472Mzydgtwl (S) [Mass/Vol]3.3 g/dLHenry County HospitalHematocrit Auto (Bld) [Volume fraction]on 42-71-2049Azcglcbask (Bld) [Volume fraction]41.1 %36.0-48.0[facility] HospitalHemoglobin [Mass/volume] in Bloodon 12-85-0064Erhdywjcmi (Bld) [Mass/Vol]13.7 g/dL12.0-16.0 [facility] HospitalLaboratory - Chemistry and Chemistry - challengeon 92-66-5702Wlssxzj [Mass/Vol]4.2 g/dL3.4-5.0[facility] HospitalALP [Catalytic activity/Vol]68 U/Y00-332XfxchjcllHenry County HospitalALT [Catalytic activity/Vol]26 U/M96-57OwwpcwvuxHenry County Hospital AST [Catalytic activity/Vol]21 U/P13-35FfffuqfqyHenry County Hospital Bilirubin [Mass/Vol]0.2 mg/dL0.2-1.0[facility] HospitalCalcium [Mass/Vol]9.3 mg/dL8.5-10.1FUniversity Hospitals Beachwood Medical CenterChloride [Moles/Vol] 96 mmol/CNzf42-702KkemdbhulHenry County HospitalCholesterol [Mass/Vol]207 mg/dLHigh<=200[facility] HospitalCholesterol in HDL [Mass/Vol]74 mg/bMNbbz73-34ZerqsfoqyHenry County HospitalComment on above:> or =60 mg/dl - LOW CARDIOVASCULAR RISK<40 mg/dl - HIGH CARDIOVASCULAR RISKCO2 [Moles/Vol]26.5 mmol/L21.0-32.0[facility] HospitalCreatinine [Mass/Vol]0.70 mg/dL 0.55-1.02[facility] HospitalGFR/1.73 sq M.predicted MDRD (S/P/Bld) [Vol rate/Area]mL/min/{1.73_m2}>=60[facility] HospitalGlucose [Mass/Vol]68 mg/dKPqv47-378XwxgobfwzHenry County HospitalPotassium [Moles/Vol]4.6 mmol/L3.5-5.1FUniversity Hospitals Beachwood Medical CenterProtein [Mass/Vol] 7.5 g/dL6.4-8.2FCleveland Clinic South Pointe Hospitalodium [Moles/Vol]133 mmol/LLow 136-145Henry [facility] HospitalTriglyceride [Mass/Vol]51 mg/dL<=150 [facility] HospitalTSH Qn1.057 m[IU]/L0.358-3.740[facility] HospitalUrea nitrogen [Mass/Vol]12.0 mg/dL7.0-18.0[facility] HospitalUrea nitrogen/Creatinine [Mass ratio]17.1 mg/mgHenry County HospitalLaboratory - Hematology and Cell countson 03-23-2024 Immature granulocytes/100 WBC (Bld)0.1 %0.0-0.5FUniversity Hospitals Beachwood Medical Center Leukocytes [#/volume] corrected for nucleated erythrocytes in Blood by Automated counon 48-65-9007ZHG corrected for nucl RBC Auto (Bld) [#/Vol]7.4 10 3/uL 4.0-11.0[facility] HospitalLymphocytes Auto (Bld) [#/Vol]on 14-53-7277Sklaqzetmyb (Bld) [#/Vol]3.0 10 3/uL1.2-3.8[facility] HospitalLymphocytes/100 WBC Auto (Bld)on 43-05-9435Rzbdlcgikrf/100 WBC (Bld)40.4 % 20.5-60.0[facility] HospitalMCH Auto (RBC) [Entitic mass]on 09-59-0353EKS (RBC) [Entitic mass]32.0 pg26.7-34.0[facility] HospitalMCHC Auto (RBC) [Mass/Vol]on 09-72-0220WNSB (RBC) [Mass/Vol]33.3 g/dL 29.9-35.2FUniversity Hospitals Beachwood Medical CenterMCV Auto (RBC) [Entitic vol]on 12-29-3833RFG (RBC) [Entitic vol]96.0 fL81.0-99.0[facility] HospitalMonocytes Auto (Bld) [#/Vol]on 47-33-1663Vacnraezo (Bld) [#/Vol]0.7 10 3/uL0.3-0.8[facility] HospitalMonocytes/100 WBC Auto (Bld)on 39-58-6548Omsukfgzx/100 WBC (Bld)9.3 %1.7-12.0[facility] Neutrophils Auto (Bld) [#/Vol]on 58-64-9902Dylyelptwsi (Bld) [#/Vol]3.5 10 3/uL 1.4-6.5FUniversity Hospitals Beachwood Medical CenterNeutrophils/100 WBC Auto (Bld)on 97-37-9541Uugwlaeaujt/100 WBC (Bld)47.4 %43.0-75.0[facility] HospitalNo Panel Informationon 00-32-5189Ymdrxncvcqk # (Auto)0.2 10 3/uL0.0-0.7 [facility] HospitalImmature Granulocyte # (Auto)0.01 10 3/uL 0.00-0.03[facility] HospitalPlatelet mean volume Auto (Bld) [Entitic vol]on 20-46-2433Nstrebab mean volume (Bld) [Entitic vol]9.7 fL9.5-13.5 [facility] HospitalPlatelets Auto (Bld) [#/Vol]on 03-23-2024 Platelets (Bld) [#/Vol]469 10 3/kYGxul649-310LhuzfnmjnHenry County Hospital RBC Auto (Bld) [#/Vol]on 47-48-1305RZJ (Bld) [#/Vol]4.28 10 6/uL4.20-5.40 Corey Hospitalerum or plasma albumin/globulin mass ratioon 01-49-6915Abyqowr/Globulin [Mass ratio]1.3 {ratio}Corey Hospitalerum or plasma anion gap determinationon 67-79-7447Yxyeh gap [Moles/Vol] 15.1 mmol/LFCleveland Clinic South Pointe Hospitalerum or plasma total cholesterol/high density lipoprotein (HDL) cholesterol mass graeme 03-23-2024 Cholesterol.total/Cholesterol in HDL [Mass ratio]2.8 {ratio}[facility] HospitalComment on above:3.3 - 4.4 LOW RISK4.4 - 7.1 AVERAGE RISK7.1 - 11.0 MODERATE RISK>11.0 HIGH RISKLaboratory - Chemistry and Chemistry - challengeon 67-26-3699Goiskrzlu Ql (U)NegativeHenry County Hospital Glucose (U) [Mass/Vol]NegativeHenry County HospitalKetones Ql (U) [facility] HospitalpH (U)5 [pH]Corey Hospitalpecific gravity (U) [Rel density]1.010[facility] Urobilinogen (U) [Mass/Vol]0.2 mg/dLHenry County HospitalLaboratory - Specimen informationon 24-47-6329Ybvxfitewt (U)CloudyHenry County HospitalColor (U)YellowHenry County HospitalLaboratory - Urinalysison 97-51-9755Conrmialz esterase Test strip Ql (U)++[facility] HospitalNitrite Ql (U)NegativeHenry County HospitalProtein Ql (U)NegativeHenry County HospitalNo Panel Informationon 12-08-2023 Urine Occult BloodNegativeHenry County HospitalUrinalysis - DIPSTICK on 62-61-6618Uonojppjzy (U)[employer] Other Bilirubin Ql (U)[employer] Other Color (U)light CAL - [employer] Other Glucose Ql (U)[employer] Other Hemoglobin Ql (U)non hem to traceMonterey Cambrian [employer] Other Ketones Ql (U)NegativeMonterey [employer] Other Leukocyte esterase Test strip Ql (U)moderateMonterey [employer] Other Nitrite Ql (U)[facility] [employer] Other pH (U)7.0 [pH][facility] ORDISSIMO Other Protein Ql (U)NegativeMonterey [employer] Other Specific gravity (U) [Rel density]1.005[facility] [employer] Other Urobilinogen (U) [Mass/Vol]0.5 mg/dLMonterey [employer] Other Urinalysis - DIPSTICKMonterey [employer] Other [facility] CBC AUTO DIFFon 90-31-7567XYJD #0.1 103/ul Normal0.0-0.1[facility] HospitalComment on above:Performed By: #### URCX #### Laboratory [address] [place] [address] Dr. Shakeel AlfonsoBasophils/100 WBC (Bld)0.7 %Normal0.2-2.0[facility] Comment on above:Performed By: #### URCX #### Laboratory [address] [place] [address] Dr. Shakeel Camacho #0.1 103/ulNormal0.0-0.7The Comment on above: Performed By: #### URCX #### Laboratory [address] [place] [address] Dr. Shakeel Mccallosinophils/100 WBC (Bld)1.9 %Normal0.9-7.0[facility] Comment on above:Performed By: #### URCX #### Laboratory [address] [place] [address] Dr. Shakeel Mccallrythrocyte distribution width (RBC) [Ratio]14.1 %Klekib01.0-15.0 The [facility] Clinic Union Hospitalment on above:Performed By: #### URCX #### Laboratory [address] [place] [address] Dr. Shakeel AlfonsoHematocrit (Bld) [Volume fraction]39.5 %Vbgrvy99.0-48.0The Comment on above:Performed By: #### URCX #### Laboratory [address] [place] [address] Dr. Shakeel AlfonsoHemoglobin (Bld) [Mass/Vol]13.1 g/oEGzqpgv80.0-16.0The [facility] on above:Performed By: #### URCX #### Laboratory [address] [place] [address] Dr. Shakeel Sorensen #0.02 10e3/ulNormal0.00-0.03The [facility] on above:Performed By: #### URCX #### Laboratory [address] [place] [address] Dr. Shakeel Sorensen %0.3 %Normal0.0-0.5The [facility] on above: Performed By: #### URCX #### Laboratory [address] [place] [address] Dr. Shakeel PonceH #3.1 103/ulNormal1.2-3.8The [facility] on above:Performed By: #### URCX #### Laboratory [address] [place] [address] Dr. Shakeel De La Cruzmphocytes/100 WBC (Bld)41.6 %Beidny98.5-60.0The [facility] on above:Performed By: #### URCX #### Laboratory [address] [place] [address] Dr. Shakeel Sanchez (RBC) [Entitic mass]32.0 biVviumf06.7-34.0The Zoey HospitalComment on above:Performed By: #### URCX #### Laboratory [address] [place] [address] Dr. Shakeel GaloHC (RBC) [Mass/Vol]33.2 g/lFWbehsw58.9-35.2The Comment on above:Performed By: #### URCX #### Laboratory [address] [place] [address] Dr. Shakeel GaloV (RBC) [Entitic vol]96.6 vPJwkthn17.0-99.0The [facility] HospitalComment on above:Performed By: #### URCX #### Laboratory [address] [place] [address] Dr. Shakeel Izaguirre #0.6 103/ulNormal0.3-0.8The Comment on above:Performed By: #### URCX #### Laboratory [address] [place] [address] Dr. Shakeel Velasquezocytes/100 WBC (Bld)8.0 %Normal1.7-12.0The Comment on above:Performed By: #### URCX #### Laboratory [address] [place] [address] Dr. Shakeel Jones #3.5 103/ulNormal1.4-6.5The Comment on above:Performed By: #### URCX #### Laboratory [address] [place] [address] Dr. Shakeel Stallingsutrophils/100 WBC (Bld)47.5 %Xteuwn96.0-75.0The Comment on above:Performed By: #### URCX #### Laboratory [address] [place] [address] Dr. Shakeel Arthurlet mean volume (Bld) [Entitic vol]9.7 fLNormal9.5-13.5The Comment on above:Performed By: #### URCX #### Laboratory [address] [place] [address] Dr. Shakeel AddisonT409 103/phNziigr748-338Ocd [facility] on above: Performed By: #### URCX #### Laboratory [address] [place] [address] Dr. Shakeel AlfonsoRBC4.09 106/ulCritically low4.20-5.40The Comment on above:Performed By: #### URCX #### Laboratory [address] [place] [address] Dr. Shakeel AlfonsoWBC7.4 103/ulNormal4.0-11.0The [facility] on above: Performed By: #### URCX #### Laboratory [address] [place] [address] Dr. Shakeel PerdomoFAIR PROFILEon 13-89-9160Xfibuxr [Mass/Vol]4.2 g/dLNormal 3.4-5.0The [facility] on above:Performed By: #### URCX #### Laboratory [address] [place] [address] Dr. Shakeel AlfonsoAlbumin/Globulin [Mass ratio]1.3 {ratio}NormalThe [facility] on above:Performed By: #### URCX #### Laboratory [address] [place] [address] Dr. Shakeel ArteagaP [Catalytic activity/Vol]63 U/YZnwjbu97-990Bfg [facility] on above:Performed By: #### URCX #### Laboratory [address] [place] [address] Dr. Shakeel Zarate [Catalytic activity/Vol]17 U/NQbfdzi49-97Qtg [facility] on above:Performed By: #### URCX #### Laboratory [address] [place] [address] Dr. Shakeel Zamora [Catalytic activity/Vol]14 U/LCritically mkb41-72Vga [facility] on above:Performed By: #### URCX #### Laboratory [address] [address] [address] Shakeel AlfonsoBilirubin [Mass/Vol]0.4 mg/dLNormal0.2-1.0The Comment on above:Performed By: #### URCX #### Laboratory [address] [place] [address] Dr. Shakeel AlfonsoCalcium [Mass/Vol]9.1 mg/dLNormal8.5-10.1The Comment on above:Performed By: #### URCX #### Laboratory [address] [place] [address] Dr. Shakeel AlfonsoChloride [Moles/Vol]100 mmol/YXisnhf64-494Odr Comment on above:Performed By: #### URCX #### Laboratory [address] [place] [address] Dr. Shakeel AlfonsoCHOL-HDL RATIO NORMSMercy Health Fairfield HospitalComment on above:Result Comment: 3.3 - 4.4 LOW RISK 4.4 - 7.1 AVERAGE RISK 7.1 - 11.0 MODERATE RISK >11.0 HIGH RISKPerformed By: #### URCX #### Laboratory [address] [place] [address] Dr. Shakeel Donovanesterol [Mass/Vol]231 mg/dLCritically high<=200The Comment on above:Performed By: #### URCX #### Laboratory [address] [place] [address] Dr. Shakeel Donovanesterol in HDL [Mass/Vol]70 mg/dLCritically cskk94-41Ptx Comment on above:Performed By: #### URCX #### Laboratory [address] [place] [address] Dr. Shakeel Donovanesterol in LDL [Mass/Vol]145.2 mg/dLLutheran HospitalComment on above:Performed By: #### URCX #### Laboratory [address] [place] [address] Dr. Shakeel Donovanesterol.total/Cholesterol in HDL [Mass ratio]3.3 {ratio} NormalThe Comment on above:Performed By: #### URCX #### Laboratory [address] [place] [address] Dr. Shakeel AlfonsoCO2 [Moles/Vol]27.1 mmol/JFqykom45.0-32.0The Comment on above:Performed By: #### URCX #### Laboratory [address] [place] [address] Dr. Shakeel AlfonsoCreatinine [Mass/Vol]0.77 mg/dLNormal0.55-1.02The Comment on above:Performed By: #### URCX #### Laboratory [address] [place] [address] Dr. Shakeel AlfonsoGlobulin (S) [Mass/Vol]3.3 g/dLNoBrecksville VA / Crille HospitalComment on above:Performed By: #### URCX #### Laboratory [address] [place] [address] Dr. Shakeel AlfonsoGlucose [Mass/Vol]72 mg/dLCritically hju58-009Hiu Comment on above:Performed By: #### URCX #### Laboratory [address] [place] [address] Dr. Shakeel AlfonsoHDL NORMAL> or = 60 mg/dl - LOW CARDIOVASCULAR RISK <40 mg/dl - HIGH CARDIOVASCULAR RISKLutheran HospitalComment on above:Performed By: #### URCX #### Laboratory [address] [place] [address] Dr. Shakeel AlfonsoLDL CALC NORMALSEE BELOWLutheran HospitalComment on above:Result Comment: <100 mg/dl OPTIMAL 100 - 129 mg/dl NEAR OR ABOVE OPTIMAL 130 - 159 mg/dl BORDERLINE HIGH 160 - 189 mg/dl HIGH >190 mg/dl VERY HIGH Performed By: #### URCX #### Laboratory [address] [place] [address] Dr. Shakeel AlfonsoPotassium [Moles/Vol]4.0 mmol/LNormal3.5-5.1[facility] Comment on above:Performed By: #### URCX #### Laboratory [address] [address] [address] Shakeel AlfonsoProtein [Mass/Vol]7.5 g/dLNormal6.4-8.2The Comment on above:Performed By: #### URCX #### Laboratory [address] [address] [address] Shakeel AlfonsoSodium [Moles/Vol]137 mmol/ZVipzfa357-156Rgs Comment on above:Performed By: #### URCX #### Laboratory [address] [place] [address] Dr. Shakeel AlfonsoTriglyceride [Mass/Vol]79 mg/dLNormal<=150The Comment on above:Performed By: #### URCX #### Laboratory [address] [place] [address] Dr. Shakeel AlfonsoTSH0.982 uIU/mLNormal0.358-3.740[facility] HospitalComment on above:Performed By: #### URCX #### Laboratory [address] [place] [address] Dr. Shakeel AlfonsoUrea nitrogen [Mass/Vol]13.0 mg/dLNormal7.0-18.0[facility] HospitalComment on above:Performed By: #### URCX #### Laboratory [address] [place] [address] Dr. Shakeel AlfonsoUrea nitrogen/Creatinine [Mass ratio]16.9 mg/mgNoBrecksville VA / Crille HospitalComment on above:Performed By: #### URCX #### Laboratory [address] [place] [address] Dr. Shakeel AlfonsoVLDL CALC15.8 mg/dLNoBrecksville VA / Crille HospitalComment on above: Performed By: #### URCX #### Laboratory [address] [place] [address] Dr. Shakeel AlfonsoMG MAMM SCREEN 3D DONNELL CADon [id number] MAMM SCREEN 3D DONNELL CAD Patient: KIM CRANE Exam Date: 03/10/2022 : 1970 Gender:F Ordering : DR TIARA MATTSON M.D. Admission #: [id number] Family : Order #: [id number] CLICK HERE TO VIEW EXAM RADIOLOGY REPORT PROCEDURE: MAMMOGRAM SCREENING 3D BILATERAL CAD COMPARISON: MG MAMM SCREEN 3D DONNELL CAD, 03/05/2021. MG MAMM SCREEN DONNELL W CAD, 06/07/2017. INDICATIONS: Screening mammography Calculator Name NCI Breast Cancer Risk Assessment Tool 5 Year Breast Cancer Risk 0.80% Lifetime Breast Cancer Risk 6.20% Personal Breast Cancer No Personal Ovarian Cancer No Treatments None Family Cancers None LOCATION: The BREAST COMPOSITION: Scattered areas fibroglandular density. FINDINGS: DIAGNOSTIC CATEGORY 2--BENIGN FINDING: RIGHT BREAST: No significant suspicious finding. This exam includes additional mammographic views for implant evaluation and shows no visible implant abnormality. No significant change has occurred. LEFT BREAST: No significant suspicious finding. This exam includes additional mammographic views for implant evaluation and shows no visible implant abnormality. No significant change has occurred. RECOMMENDATIONS: ROUTINE MAMMOGRAM AND CLINICAL EVALUATION IN 12 MONTHS. PLEASE NOTE: A NORMAL MAMMOGRAM DOES NOT EXCLUDE THE POSSIBILITY OF BREAST CANCER. A CLINICALLY SUSPICIOUS PALPABLE LUMP SHOULD BE BIOPSIED. Dictated by: Heladio Carlton M.D. on 03/10/2022 at 13:35 Approved by: Heladio Carlton M.D. on 03/10/2022 at 13:37NoBrecksville VA / Crille HospitalCovid-19 PCR (CVDTBH)on [id number]-CoV-2 (COVID-19) RNA BAKARI+probe Ql (Unsp spec)Not detectedNormalNOT DETECTEDThe Comment on above: Result Comment: This test is not yet approved or cleared by the [place] FDA. When there are no FDA-approved or cleared tests available, and other criteria are met, FDA can make tests available under an emergency access mechanism called an Emergency Use Authorization (EUA). The EUA for this test is supported by the [employer] of Health and Human Service's (HHS's) declaration that circumstances exist to justify the emergency use of in vitro diagnostics for the detection and/or diagnosis of the virus that causes COVID-19. This EUA will remain in effect (meaning this test can be used) for the duration of the COVID-19 declaration justifying emergency of IVDs, unless it is terminated or revoked by FDA (after which the test may no longer be used). When diagnostic testing is negative, the possibility of a false negative should be considered in the context of a patient's recent exposures and the presence of clinical signs and symptoms consistent with SARS-CoV-2.Performed By: #### CVDTBH #### Laboratory [address] [place] [address] Dr. Shakeel AlfonsoCUURE URINEon [id number] URINEIsolate 1 Streptococcus agalactiae >100,000 cfu/mL of ORGANISM 1 Streptococcus agalactiae ANTIBIOTIC M.I.C RX STATUS Benzylpenicillin <=0.06 S F Ampicillin <=0.25 S F Cefotaxime <=0.12 S F Ceftriaxone <=0.12 S F Levofloxacin 0.5 S F Inducible Clindamycin Resistance Neg NEG F Erythromycin <=0.12 S F Clindamycin <=0.25 S F Linezolid <=2 S F Vancomycin 0.5 S F Tetracycline <=0.25 S FNormalThe Comment on above:Performed By: #### URCX #### Laboratory [address] [place] [address] Dr. Shakeel Fortune AUTO DIFFon [id number] #0.1 103/ulNormal0.0-0.1The Comment on above:Performed By: #### CBC #### Laboratory [address] [place] [address] Dr. Shakeel AlfonsoBasophils/100 WBC (Bld)0.7 %Normal0.2-2.0The Comment on above:Performed By: #### CBC #### Laboratory [address] [place] [address] Dr. Beckford ChangERicardo #0.1 103/ulNormal0.0-0.7The Comment on above: Performed By: #### CBC #### Laboratory [address] [address] [address] Shakeel Mccallosinophils/100 WBC (Bld)1.0 %Normal0.9-7.0The Comment on above:Performed By: #### CBC #### Laboratory [address] [place] [address] Dr. Shakeel Mccallrythrocyte distribution width (RBC) [Ratio]14.3 %Mifqtg03.0-15.0 The Comment on above:Performed By: #### CBC #### Laboratory [address] [place] [address] Dr. Shakeel AlfonsoHematocrit (Bld) [Volume fraction]40.0 %Ctehzd05.0-48.0The Comment on above:Performed By: #### CBC #### Laboratory [address] [place] [address] Dr. Shakeel AlfonsoHemoglobin (Bld) [Mass/Vol]13.2 g/zOGbioco21.0-16.0The Comment on above:Performed By: #### CBC #### Laboratory [address] [place] [address] Dr. Shakeel Sorensen #0.03 10e3/ulNormal0.00-0.03The Comment on above:Performed By: #### CBC #### Laboratory [address] [place] [address] Dr. Shakeel Sorensen %0.3 %Normal0.0-0.5The Comment on above: Performed By: #### CBC #### Laboratory [address] [place] [address] Dr. Shakeel De La CruzMPH #2.0 103/ulNormal1.2-3.8The Comment on above:Performed By: #### CBC #### Laboratory [address] [place] [address] Dr. Shakeel De La Cruzmphocytes/100 WBC (Bld)22.3 %Buqzwt56.5-60.0The Comment on above:Performed By: #### CBC #### Laboratory [address] [address] [address] Shakeel Kamara DIFF REQNONormalThe Comment on above: Performed By: #### CBC #### Laboratory [address] [address] [address] Shakeel Glao (RBC) [Entitic mass]31.7 oyBwhibs98.7-34.0The Comment on above:Performed By: #### CBC #### Laboratory [address] [address] [address] Shakeel Galo (RBC) [Mass/Vol]33.0 g/kLWftjhv77.9-35.2The Comment on above:Performed By: #### CBC #### Laboratory [address] [place] [address] Dr. Shakeel Galo (RBC) [Entitic vol]95.9 aGPrjimp43.0-99.0The Comment on above:Performed By: #### CBC #### Laboratory [address] [place] [address] Dr. Shakeel Izaguirre #0.7 103/ulNormal0.3-0.8The Comment on above:Performed By: #### CBC #### Laboratory [address] [place] [address] Dr. Shakeel Velasquezocytes/100 WBC (Bld)7.3 %Normal1.7-12.0The Comment on above:Performed By: #### CBC #### Laboratory [address] [address] [address] Shakeel Jones #6.2 103/ulNormal1.4-6.5The [facility] Hospitalment on above:Performed By: #### CBC #### Laboratory [address] [place] [address] Dr. Shakeel Stallingsutrophils/100 WBC (Bld)68.4 %Ccstuz36.0-75.0The [facility] HospitalComment on above:Performed By: #### CBC #### Laboratory [address] [address] [address] Shakeel Arthurlet mean volume (Bld) [Entitic vol]8.9 fLCritically low 9.5-13.5The Comment on above:Performed By: #### CBC #### Laboratory [address] [address] [address] Shakeel AlfonsoPLT367 103/grJtpcwi072-703Ive Comment on above: Performed By: #### CBC #### Laboratory [address] [address] [address] Shakeel AlfonsoRBC4.17 106/ulCritically low4.20-5.40The [facility] Hospitalment on above:Performed By: #### CBC #### Laboratory [address] [address] [address] Shakeel AlfonsoWBC9.1 103/ulNormal4.0-11.0The Comment on above: Performed By: #### CBC #### Laboratory [address] [place] [address] Dr. Shakeel AlfonsoCT ABD/PELVIS WO CONon [id number] ABD/PELVIS WO CONEXAMINATION: CT ABD/PELVIS WO CON, 05/04/2021 7:29 AM EDT HISTORY: Syncope COMPARISON: None. TECHNIQUE: CT scan of the abdomen and pelvis was performed without IV contrast. CT dose reduction technique was used, including Automated Exposure Control. FINDINGS: LUNG BASES: No visible pulmonary or pleural disease. LIVER: No enlargement, atrophy, abnormal density, or significant focal lesion. BILIARY: No dilatation or calcification. PANCREAS: No lesion, fluid collection, ductal dilatation, or atrophy. SPLEEN: No enlargement or focal lesion. ADRENALS: No mass or enlargement. KIDNEYS: Right cortical hypodensity, a simple cyst is favored BOWEL/MESENTERY: Moderate stool in the colon and rectum. Nonobstructive bowel gas pattern. Normal appendix. AORTA/VASCULAR: No aneurysm or dissection. RETROPERITONEUM: No mass or adenopathy. LYMPH NODES: No adenopathy. URINARY BLADDER: No visible focal wall thickening, lesion, or calculus. PELVIC ORGANS: Hysterectomy. Multiple pelvic calcifications, vascular phleboliths are favored ABDOMINAL WALL: No mass or hernia. BONES: No bony lesion or fracture. OTHER: Negative. IMPRESSION: No acute abnormality Electronically authenticated by: STEPHANIE SILVA Date: 2021-05-04 09:01[facility] HospitalCT CSPINE WO CONon [id number] CSPINE WO CONEXAMINATION: CT CSPINE WO CON HISTORY: Syncope COMPARISON: No relevant comparison available. TECHNIQUE: Axial, Coronal, and Sagittal images were created without IV contrast. Dose reduction techniques were achieved by using automated exposure control and/or adjustment of mA and/or kV according to patient size and/or use of iterative reconstruction technique. FINDINGS: VERTEBRAL BODIES: Reversal of normal cervical lordosis with no acute fracture or spondylolisthesis. Mild degenerative spondylosis and facet osteoarthropathy most significant C3-C4 FACET JOINTS: No disruption or abnormal widening. CERVICAL DISCS: Mild multilevel disc space narrowing CENTRAL CANAL: No spinal stenosis or evidence of hemorrhage. PARASPINAL AREA: No visible mass. IMPRESSION: Reversal of normal cervical lordosis with no acute fracture Electronically authenticated by: STEPHANIE SILVA Date: 2021-05-04 09:05NoBrecksville VA / Crille HospitalCT HEAD WO CONon [id number] HEAD WO CONEXAMINATION: CT HEAD WO CON, 05/04/2021 7:29 AM EDT HISTORY: Syncope COMPARISON: None. TECHNIQUE: CT scan of the head was performed without IV contrast. CT dose reduction technique was used, including Automated Exposure Control. FINDINGS: BRAIN: No edema, hemorrhage, mass, acute infarction, or inappropriate atrophy. CSF SPACES: No hydrocephalus, subarachnoid hemorrhage, or mass. Appropriate for age. SKULL: No fracture, mass, or other significant visible lesion. SINUSES: No significant mucosal thickening or fluid on the limited views. ORBITS: No appreciable abnormality on the limited views. OTHER: Negative IMPRESSION: No acute abnormality Electronically authenticated by: STEPHANIE SILVA Date: 2021-05-04 08:55[facility] HospitalDRUG SCREEN RAPID (URINE)on [id number] The Comment on above:Performed By: #### DRUGKENNY ELLIS UMICRO #### Laboratory [address] [place] [address] Dr. Shakeel AlfonsoBARNegativeNormalNEGATIVEFayette County Memorial HospitalComment on above: Performed By: #### DRUGRPD, ERUR, UMICRO #### Laboratory [address] [place] [address] Dr. Shakeel WintersPNegativeNormalNEGATIVEFayette County Memorial HospitalComment on above: Performed By: #### DRUGRPD, ERUR, UMICRO #### Laboratory [address] [place] [address] Dr. Shakeel AlfonsoBZONegativeNormalNEGATIVEFayette County Memorial HospitalComment on above: Performed By: #### DRUGRPShikha, ERUR, UMICRO #### Laboratory [address] [place] [address] Dr. Shakeel BakerCNegativeNormalNEGATIVEFayette County Memorial HospitalComment on above: Performed By: #### DRUGCALEB, ERUR UMICRO #### Laboratory [address] [place] [address] Dr. Shakeel TurciosAkron Children's HospitalComment on above: Result Comment: AMP (Amphetamine): 500ng/mL, BAR (Barbituates): 200 ng/mL, BZO (Benzodiazepines): 150 ng/mL, BUP (Buprenorphine): 10 ng/mL, ITALO (Cocaine): 150 ng/mL, mAMP (Methamphetamine): 500 ng/mL, MTD (Methadone): 200 ng/mL, OPI (Opiates): 100 ng/mL, OXY (Oxycodone): 100 ng/mL, PCP (Phencyclidine): 25 ng/mL, PPX (Propoxyphene): 300 ng/mL, THC (Cannabinoids): 50 ng/mL, TCA (Trycyclic Antidepressants): 300 ng/mLPerformed By: #### DRUGRPD, ERUR, UMICRO #### Laboratory [address] [place] [address] Dr. Shakeel AlfonsoDRUG CUT HEADERDRUG CLASS TEST SYSTEM CUT-OFF CONCENTRATIONS ARE FOLLOWS:NormalThe Comment on above:Performed By: #### DRUGRPD, ERUR, UMICRO #### [facility] [address] [address] [address] Shakeel AlfonsomAMPNegativeNormalNEGATIVEFayette County Memorial HospitalComment on above: Performed By: #### DRUGRPD, ERUR, UMICRO #### Laboratory [address] [address] [address] Shakeel AlfonsoMTDNegativeNormalNEGATIVEFayette County Memorial HospitalComment on above: Performed By: #### DRUGRPD, ERUR, UMICRO #### Laboratory [address] [address] [address] Shakeel RecinosINegativeNormalNEGATIVEFayette County Memorial HospitalComment on above: Performed By: #### DRUGRPD, ERUR, UMICRO #### Laboratory [address] [address] [address] Shakeel AlfonsoOXYNegativeNormalNEGATIVEFayette County Memorial HospitalComment on above: Performed By: #### DRUGRPD, ERUR, UMICRO #### Laboratory [address] [address] [address] Shakeel AlfonsoPCPNegativeNormalNEGATIVEFayette County Memorial HospitalComment on above: Performed By: #### DRUGRPD, ERUR, UMICRO #### Laboratory [address] [address] [address] Shakeel AlfonsoPPXNegativeNormalNEGATIVEFayette County Memorial HospitalComment on above: Performed By: #### DRUGRPD, ERUR, UMICRO #### [facility] [address] [address] [address] Shakeel AlfonsoTCANegativeNormalNEGATIVEFayette County Memorial HospitalComment on above: Performed By: #### DRUGRPD, ERUR, UMICRO #### [facility] [address] [address] [address] Shakeel AlfonsoTHCNegativeNormalNEGATIVEFayette County Memorial HospitalComment on above: Performed By: #### DRUGRPD, ERUR, UMICRO #### [facility] [address] [address] [address] Shakeel Fontanez URINE PROFILEon [id number] Ql (U)NegativeNormal NEGATIVEFayette County Memorial HospitalComment on above:Performed By: #### DRUGRPD, ERUR, UMICRO #### Laboratory [address] [address] [address] Shakeel AlfonsoClarity (U)CLEARNormalCLEARFayette County Memorial HospitalComment on above: Performed By: #### DRUGRPD, ERUR, UMICRO #### Laboratory [address] [address] [address] Shakeel AlfonsoColor (U)YELLOWNormalYELLOWFayette County Memorial HospitalComment on above: Performed By: #### DRUGRPD, ERUR, UMICRO #### Laboratory [address] [address] [address] Shakeel CastanonANA micrscopic examination will be performed if indicated. NormalThe Comment on above:Performed By: #### DRUGRPD, ERUR, UMICRO #### Laboratory [address] [address] [address] Shakeel AlfonsoGlucose Ql (U)NegativeNormalNEGATIVEFayette County Memorial HospitalComment on above:Performed By: #### DRUGRPD, ERUR, UMICRO #### Laboratory [address] [address] [address] Shakeel AlfonsoHemoglobin Ql (U)NegativeNormalNEGATIVEPromedica Memorial Hospital on above:Performed By: #### DRUGRPD, ERUR, UMICRO #### Laboratory [address] [address] [address] Shakeel AlfonsoKetones Ql (U)TRACEAbnormalNEGATIVEFayette County Memorial HospitalComment on above:Performed By: #### DRUGRPD, ERUR, UMICRO #### Laboratory [address] [address] [address] Shakeel AlfonsoLEUKOCYTESSMALLAbnormalNEGATIVEThe [facility] HospitalComment on above:Performed By: #### DRUGRPShikha, ERUR, UMICRO #### Laboratory [address] [place] [address] Dr. Shaekel Llamas Ql (U)NegativeNormalNEGATIVEThe [facility] HospitalComment on above:Performed By: #### DRUGRPD, ERUR, UMICRO #### Laboratory [address] [place] [address] Dr. Shakeel Murray (U)6.0 [pH]Normal5-9The [facility] HospitalComment on above: Performed By: #### DRUGRPShikha ERUR, UMICRO #### Laboratory [address] [place] [address] Dr. Shakeel Bell (U) [Mass/Vol]30 mg/dLAbnormalNEGATIVE/ TRACEThe [facility] HospitalComment on above:Performed By: #### DRUGHEMALATHA ELLISR, UMICRO #### Laboratory [address] [place] [address] Dr. Shakeel AlfonsoSPEC GRAVITY1.025Zwwqyq4.005-<=1.025The Comment on above:Performed By: #### DRUGCALEB ERUR, UMICRO #### Laboratory [address] [place] [address] Dr. Shakeel Tapia MICRO INDINDICATEDNormalThe Comment on above: Performed By: #### DRUGHEMALATHA ELLISR, UMICRO #### Laboratory [address] [place] [address] Dr. Shakeel Prieto Qn (U)0.2 {Rachelle'U}/dLNormal0.2 - 1.0The Comment on above:Performed By: #### DRUGRPD, ERUR, UMICRO #### Laboratory [address] [place] [address] Dr. Shakeel EscalanteF 14(COMP METB)on [id number] [Mass/Vol]4.2 g/dLNormal 3.5-5.0The [facility] HospitalComment on above:Performed By: #### URCX #### Laboratory [address] [address] [address] Shakeel AlfonsoAlbumin/Globulin [Mass ratio]1.3 {ratio}NormalThe Comment on above:Performed By: #### URCX #### Laboratory [address] [address] [address] Shakeel ArteagaP [Catalytic activity/Vol]62 U/YWdmily07-190Lop Comment on above:Performed By: #### URCX #### Laboratory [address] [address] [address] Shakeel ArteagaT [Catalytic activity/Vol]24 U/LNormal9-52The Comment on above:Performed By: #### URCX #### Laboratory [address] [place] [address] Dr. Shakeel Rosenbergon gap [Moles/Vol]7.2 mmol/LNormalThe Comment on above:Performed By: #### URCX #### Laboratory [address] [place] [address] Dr. Shakeel AlfonsoAST [Catalytic activity/Vol]18 U/SDiuhlm86-11Quj [facility] Hospitalment on above:Performed By: #### URCX #### Laboratory [address] [address] [address] Shakeel AlfonsoBilirubin [Mass/Vol]0.3 mg/dLNormal0.2-1.3The Comment on above:Performed By: #### URCX #### Laboratory [address] [address] [address] Shakeel AlfonsoCalcium [Mass/Vol]9.1 mg/dLNormal8.4-10.2The Comment on above:Performed By: #### URCX #### Laboratory [address] [address] [address] Shakeel AlfonsoChloride [Moles/Vol]101 mmol/GFnixex58-428Vae Comment on above:Performed By: #### URCX #### Laboratory [address] [address] [address] Shakeel AlfonsoCO2 [Moles/Vol]29.4 mmol/RAbekvj72.0-30.0The Comment on above:Performed By: #### URCX #### Laboratory [address] [address] [address] Shakeel AlfonsoCreatinine [Mass/Vol]0.75 mg/dLNormal0.52-1.04F[facility] HospitalComment on above:Performed By: #### URCX #### Laboratory [address] [address] [address] Beckford ChangEGFR-AF TURKMEN>60Normal>=60The Comment on above:Performed By: #### URCX #### Laboratory [address] [address] [address] Shakeel MccallGFR-NON AF TURKMEN>60Normal>=60The Comment on above:Performed By: #### URCX #### Laboratory [address] [address] [address] Shakeel AlfonsoGlobulin (S) [Mass/Vol]3.3 g/dLNormalThe Comment on above:Performed By: #### URCX #### Laboratory [address] [address] [address] Shakeel AlfonsoGlucose [Mass/Vol]92 mg/yNDpwarw55-020Bis Comment on above:Performed By: #### URCX #### Laboratory [address] [address] [address] Shakeel AlfonsoPotassium [Moles/Vol]3.6 mmol/LNormal3.4-5.0The Comment on above:Performed By: #### URCX #### Laboratory [address] [address] [address] Shakeel AlfonsoProtein [Mass/Vol]7.5 g/dLNormal6.1-8.2The Comment on above:Performed By: #### URCX #### Laboratory [address] [address] [address] Shakeel Hernandezum [Moles/Vol]134 mmol/LCritically mhf408-952Ozw Comment on above:Performed By: #### URCX #### Laboratory [address] [place] [address] Dr. Shakeel AlfonsoUrea nitrogen [Mass/Vol]15.0 mg/dLNormal7.0-17.0The Comment on above:Performed By: #### URCX #### Laboratory [address] [place] [address] Dr. Shakeel Flaherty nitrogen/Creatinine [Mass ratio]20.0 mg/mgNoBrecksville VA / Crille HospitalComment on above:Performed By: #### URCX #### Laboratory [address] [place] [address] Dr. Shakeel Marquez, HIGH SENSITIVITYon 07-28-0254GURNFC9.4 pg/mLNormal 4.0-35.5The Comment on above:Result Comment: CUT-OFF POINTS HAVE BEEN ESTABLISHED BASED ON THE FOURTH UNIVERSAL DEFINITIONS OF MYOCARDIAL INFARCTION. THE UPPER REFERENCE LIMIT (URL) OF TROPONIN, DEFINED THE 99TH PERCENTILE OF cTnI DISTRIBUTION IN A REFERENCE POPULATION, HAS BEEN CONFIRMED THE DECISION THRESHOLD FOR MS DIAGNOSIS.Performed By: #### URCX #### Laboratory [address] [place] [address] Dr. Shakeel Joiner MICROSCOPIC ONLYon [id number]I SEEN The Comment on above:Performed By: #### KENNY GARCIA UMICRO #### Laboratory [address] [place] [address] Dr. Shakeel Kraus identified Cx Nom (U)INDICATEDNoBrecksville VA / Crille HospitalComment on above:Performed By: #### KENNY GARCIA UMICRO #### Laboratory [address] [place] [address] Dr. Shakeel Valle SEENNormalNONE SEENThe Comment on above:Performed By: #### DRUGCALEB ERUR, UMICRO #### Laboratory [address] [address] [address] Shakeel AlfonsoCrystals LM Nom (Urine sed)NONE SEENNormalNONE SEENThe Comment on above:Performed By: #### DRUGCALEB ERUR, UMICRO #### Laboratory [address] [address] [address] Beckford ChangEpithelial cells LM Ql (Urine sed)FEWAbnormalNONE SEEN /RAREThe Comment on above:Performed By: #### DRUGCALEB ERUR, UMICRO #### Laboratory [address] [address] [address] Shakeel MarRGEAbnormalNONE SEENThe Comment on above:Performed By: #### DRUGHEMALATHA ELLISR, UMICRO #### Laboratory [address] [address] [address] Shakeel Torres SEENAbnormal0-2The Comment on above: Performed By: #### DRUGCALEB ERUR, UMICRO #### Laboratory [address] [address] [address] Shakeel AlfonsoWBC5-10AbnormalNONE SEENThe Comment on above: Performed By: #### DRUGCALEB ERUR, UMICRO #### Laboratory [address] [address] [address] Shakeel AlfonsoXR CHEST 1 Von [id number] CHEST 1 VEXAMINATION: XR CHEST 1 V HISTORY: Syncope COMPARISON: No relevant comparison available. TECHNIQUE: AP portable erect FINDINGS: LUNGS: No significant pulmonary parenchymal abnormalities. VASCULATURE: No increased pulmonary vasculature. PLEURA: No pneumothorax, effusion, or pleural thickening. CARDIAC: No cardiomegaly or cardiac silhouette abnormality. MEDIASTINUM: No visible mass or adenopathy. BONES: No fracture or visible bone lesion. OTHER: Negative. IMPRESSION: No acute disease. Electronically authenticated by: STEPHANIE SILVA Date: 2021-05-04 08:[address] [place] [address] Vital Signs Date TimeVital SignValuePerforming LlqemsntbXtmczpdl71-16-2528 13:26-0400Body mvrutj112.56 cmTiara Mattson MD Work Phone: [phone]08-13-2025 13:26-0400 Body mass index (BMI) [Ratio]28.3 kg/d5OgxvusTiara Mattson MD Work Phone: [phone] [place], [place] 92[address]808-13-2025 13:26-0400 Body usxalkuqakx30.8 [degF]Tiara Mattson MD Work Phone: [phone]08-13-2025 13:26-0400 Body nlgert76.84 kgTiara Mattson MD Work Phone: [phone]08-13-2025 13:26-0400 Diastolic blood wowentbh67 mm[Hg]Tiara Mattson MD Work Phone: [phone]08-13-2025 13:26-0400 Heart rate78 /minTiara Mattson MD Work Phone: [phone]08-13-2025 13:26-0400 SaO2% (BldA) [Mass fraction]98 %Tiara Mattson MD Work Phone: [phone]08-13-2025 13:26-0400 Systolic blood nhtvnypo584 mm[Hg]Tiara Mattson MD Work Phone: [phone]04-28-2025 14:45-0400 Body xqxuyw265.56 cmHenry County Hospital04-28-2025 14:45-0400Body mass index (BMI) [Ratio]29 kg/i6WazlwkeqsHenry County Hospital04-28-2025 14:45-0400Body iztimz54.65 kgHenry County Hospital04-28-2025 14:45-0400Diastolic blood yacwummz42 mm[Hg][facility] 12-03-2024 14:45-0400Heart rate91 /[facility] 12-03-2024 14:45-0400Systolic blood lrywezmq870 mm[Hg][facility]04-28-2025 13:32-0400Body kidrjy588.6 cmSharif Sanderson HEAD OF ACQUISITIONS Work Phone: [phone]04-28-2025 13:32-0400Body mass index (BMI) [Ratio]27.46 kg/o8Glyjs [place] [employer]ISITIONS Work Phone: [phone]04-28-2025 13:32-0400Body nehsbl24.58 kgBriseidat [place] [employer] OF ACQUISITIONS Work Phone: [phone], [place] 2956401-14-2025 09:15-0500Diastolic blood kxmembff85 mm[Hg]Tiara Mattson MD Work Phone: [phone] [place], [place] [address]647501-14-2025 09:15-0500 Heart rate77 /Jay Mattson MD Work Phone: [phone] [place], [place] 7647501-14-2025 09:15-0500 Respiratory rate18 /Jay Mattson MD Work Phone: [phone] [place], [place] [address]7501-14-2025 09:15-0500 SaO2% (BldA) [Mass fraction]100 %Tiara Mattson MD Work Phone: [phone] [place], [place] [address]647501-14-2025 09:15-0500 Systolic blood mm[Hg]Tiara Mattson MD Work Phone: [phone] [place], [place] [address]7501-14-2025 08:11-0500 Body iinfal801.56 cmTiara Mattson MD Work Phone: 1([phone])[address] [place], [place] 7647501-14-2025 08:11-0500 Body xeqtjs70.57 kgTiara Mattson MD Work Phone: 1(052)[address] [place], [place] 7647512-31-2024 09:47-0500 Body oqeipf496.56 cmTiara Mattson MD Work Phone: 1(809)[address] [place], [place] 7647512-31-2024 09:47-0500 Body mass index (BMI) [Ratio]28 kg/c5LwbcdoTiara Mattson MD Work Phone: 1(574)[address]12-31-2024 09:47-0500 Body ifpnxfvdura95.6 [degF]Tiara Mattson MD Work Phone: [phone])[address]12-31-2024 09:47-0500 Body ycdfug90.16 kgTiara Mattson MD Work Phone: [phone])[address]12-31-2024 09:47-0500 Diastolic blood zmmejzng57 mm[Hg]Tiara Mattson MD Work Phone: [phone])[address]12-31-2024 09:47-0500 Heart rate97 /minTiara Mattson MD Work Phone: [phone])[address]12-31-2024 09:47-0500 SaO2% (BldA) [Mass fraction]97 %Tiara Mattson MD Work Phone: [phone])[address]12-31-2024 09:47-0500 Systolic blood mxsebbyr646 mm[Hg]Tiara Mattson MD Work Phone: 1(051)[address]10-03-2024 08:45-0400 Body rivhwk775.56 cmPHYSICIAN [facility] 05-10-2024 08:45-0400Body mass index (BMI) [Ratio]27.6 kg/f0EZZJPGYZO [facility]10-03-2024 08:45-0400Body muuxfb39.08 kg PHYSICIAN [facility]10-03-2024 08:45-0400 Diastolic blood txgahzaq56 mm[Hg]PHYSICIAN [facility]10-03-2024 08:45-0400Heart tkbi608 /minPHYSICIAN [facility]10-03-2024 08:45-0400Respiratory rate16 /minPHYSICIAN [facility]10-03-2024 08:45-5058XaJ7% (BldA) [Mass fraction]99 %PHYSICIAN NO [facility]10-03-2024 08:45-0400Systolic blood nnsiwgnv042 mm[Hg]PHYSICIAN NO [facility]09-30-2024 14:49-0400[facility] .[facility] 14:49-0400Body mass index (BMI) [Ratio]28.1 kg/m2 [facility]09-30-2024 14:49-0400Body ggydgl76.38 kg [facility]09-30-2024 14:49-0400Diastolic blood oslidkyp16 mm[Hg][facility]09-30-2024 14:49-0400Heart jzch207 /min [facility]09-30-2024 14:49-0400Systolic blood ormgekkr959 mm[Hg][facility]05-02-2024 11:18-0400Body mwesvb275.56 [facility]05-02[facility]2024 11:18-0400Body mass index (BMI) [Ratio]29.2 kg/m0TkkalfvijHenry County Hospital05-02-2024 11:18-0400Body lueude99.11 [facility]05-02-2024 11:18-0400Diastolic blood lhucsjpi45 mm[Hg][facility]05-02-2024 11:18-0400 Heart rate85 /minHenry [facility]05-02-2024 11:18-0400Systolic blood kiuvjlww538 mm[Hg][facility]10-10-2023 09:45-0400 Body oaigzu983.56 cmTiara Mattson Other [employer] Other 10-10-2023 09:45-0400Body mass index (BMI) [Ratio] 28.66 kg/b2TrhptoTiara Mattson Other [employer] Other 10-10-2023 09:45-0400Body jekxfo44.75 kgTiara Mattson Other [employer] Other 10-10-2023 09:45-0400Diastolic blood gcbmseiz21 mm[Hg] Tiara [facility]son [facility] [employer] Other 10-10-2023 09:45-0400Systolic blood xihhqxks631 mm[Hg] Tiara Mattson Other [facility] [employer] Other 09-29-2023 10:15-0400Body adhidq973.56 cmAriannadivya Mattson Other [facility] [employer] Other 09-29-2023 10:15-0400Body mass index (BMI) [Ratio] 28.83 kg/t3ZcblizTiara Mattson Other [facility] [employer] Other 09-29-2023 10:15-0400Body xnojku15.2 kgTiara Mattson Other [facility] [employer] Other 09-29-2023 10:15-0400Diastolic blood kivdcvww55 mm[Hg] Tiara Mattson Other [facility] [employer] Other 09-29-2023 10:15-0400Systolic blood nqkvbide729 mm[Hg] Tiara Mattson Other [facility] [employer] Other Encounters Encounter DateEncounter TypeCare ProviderFacilityStart: 04-10-2025 End: 70-43-8428lzywaazjdzGRGFCE SKIEUniversRegency Hospital Cleveland Easttart: 03-27-2025 End: 37-67-9046hrhlvyxiraZBWAQN SKIEUniversRegency Hospital Cleveland Easttart: 03-20-2025 End: 15-19-3381hurzyvpijuKbbahv E Braun MD Work Phone: [facility] Work Phone: Start: 03-20-2025 End: 88-30-6265Dyameto encounter procedureKim Lubin APRN, CNP-[facility] Work Phone: Start: 02-19-2025 End: 79-77-7739wdrxmubgeeMdsdxh E Braun MD Work Phone: [facility] Work Phone: Start: 02-19-2025 End: 44-29-1541Ygpqebf encounter procedureTiara Mattson MD-[facility] Work Phone: Start: 94-53-8008spzsjwdtntHNHMYJ [facility]: 01-11-2025 End: 91-56-3147Cahftf flowsheetEmmagui Silveira MD Work Phone: noms SWS DERMStart: 01-11-2025 End: 12-26-7928Hodqep flowsheetEmmagui Silveira MD Work Phone: noms SWS DERMStart: 01-11-2025 End: 48-84-2389Ockveot encounter procedureEmmagui Silveira MD Work Phone: noms SWS DERMComment on above:Squamous cell cancer of skin of forearm, left (Primary Dx)Start: 01-11-2025 End: 74-64-6451awgolnhyxcEVVCV Lauren PETANEESHINot AvailableStart: 12-07-2024 End: 98-40-5611Sslxjs flowsheetJr. Fredrick Mcgowan DO Work Phone: noms ORTHOStart: 12-07-2024 End: 32-05-2242Vijrkm flowsheetJr. Fredrick Mendoza Stepanic DO Work Phone: noms ORTHOStart: 12-07-2024 End: 03-79-1856Sqgdch outpatient visit 15 minutesJr. Fredrick Mcgowan DO Work Phone: noms PCF ORTHOComment on above:Right wrist pain; Ganglion cyst of volar aspect of right wristStart: 12-07-2024 End: 78-92-9230bnhporsiefCX., FREDRICK Paez AvailableStart: 12-06-2024 End: 12-68-2145Pzmmeh flowsheetBaptist Memorial Hospital PA Work Phone: NOUR SWS DERMStart: 12-06-2024 End: 20-92-8929Xjdrsn flowsheetBaptist Memorial Hospital PA Work Phone: noms SWS DERMStart: 12-06-2024 End: 91-87-6316Nubjmlj encounter procedureRycarlos [facility] PA Work Phone: NOQO SWS DERMComment on above:Neoplasm of unspecified behavior of bone, soft tissue, and skin (Primary Dx)Start: 12-06-2024 End: 19-20-9695ighncviknmTLIVG NORTHEIMNot AvailableStart: 12-03-2024 End: 07-28-8302zxpilwkqjtAzyzzmkitLake County [facility] Work Phone: Start: 12-03-2024 End: 15-54-2279Sglfedn encounter procedureCount Includes [facility]St[facility] Work Phone: Start: 12-03-2024 End: 95-06-5461Frnkqn flowsLeonel Sanderson HEAD OF ACQUISITIONS Work Phone: NOII FB ORTHOPAEDICSStart: 12-03-2024 End: 94-80-7084Fndysl Brian Sanderson NP Work Phone: NOLR FB ORTHOPAEDICSStart: 12-03-2024 End: 01-73-2665Reixoe outpatient visit 15 minutesSharif Sanderson HEAD OF ACQUISITIONS Work Phone: NOBJ FB ORTHOPAEDICSComment on above:Ganglion cyst of volar aspect of right wrist (Primary Dx)Start: 12-03-2024 End: 09-97-1552rswehsrcjnJPOQU T OLSENNot AvailableStart: 11-13-2024 End: 34-97-0309Kwtjauicb encounterCarlos Rodgers DO Work Phone: noms SWS ORTHOComment on above:CystStart: 08-21-2024 Non-patient / Non-visitTiara Mattson MD Work Phone: [facility] Work Phone: Start: 08-21-2024 End: 77-74-2296Ibujyhmiq to same day surgery centerTiara Mattson MD Work Phone: [facility] Work Phone: Start: 08-21-2024 End: 93-36-3648opscrhvbehAjykof E Braun MD Work Phone: [facility] Work Phone: Start: 08-07-2024 End: 25-19-0148Jkmqzvi encounter procedureTiara Mattson MD Work Phone: Count Includes [facility]ician [place] Work Phone: Start: 06-25-2024 End: 74-50-8406Perxxx flowsheetNatalie A Felter FRUIT ROOM HAND-INSULATION WORKER INTERIOR SURFACE Work Phone: noms SWS DERMStart: 06-25-2024 End: 56-69-2274Ioxfvm flowsheetNatalie A Felter FRUIT ROOM HAND-INSULATION WORKER INTERIOR SURFACE Work Phone: NOZP SWS DERMStart: 06-25-2024 End: 93-79-1459Rudcfh outpatient visit 15 minutesNatalie A Felter FRUIT ROOM HAND-INSULATION WORKER INTERIOR SURFACE Work Phone: noms SWS DERMComment on above:Melanocytic nevus of trunk; Inflamed seborrheic keratosisStart: 06-25-2024 End: 77-34-4212rcehsdljbhYRJOLPX A FELTERNot AvailableStart: 05-10-2024 End: 31-32-7511fhwxknvlajJJFUANKRY [facility] Work Phone: Start: 05-10-2024 End: 68-60-7615Jrrzhkz encounter procedurePHYSICIAN [facility] [place] Work Phone: Start: 05-07-2024 End: 80-67-8118tfqheqpksaRrqnvecpdLake County [facility] Work Phone: Start: 05-07-2024 End: 15-73-7169Knzwybi encounter procedureCount Includes [facility] Work Phone: Start: 05-07-2024 End: 34-38-3139Zaenaaik ReferredMD Tiara Mattson Work Phone: [facility] [place] Work Phone: Start: 05-07-2024 End: 26-62-6386ewfcabdhxrGDPMNKMAW NO FAMILYMercy Health St[facility] Work Phone: Start: 05-07-2024 End: 37-42-2649Qfxyrxf encounter procedureCount Includes [facility] Work Phone: Start: 03-29-2024 End: 51-72-4921Rkfpyv flowsheetNatalie A Felter FRUIT ROOM HAND-INSULATION WORKER INTERIOR SURFACE Work Phone: noms SWS DERMStart: 03-29-2024 End: 16-69-8527Qixqgo flowsheetNatalie A Felter FRUIT ROOM HAND-INSULATION WORKER INTERIOR SURFACE Work Phone: NORE SWS DERMStart: 03-29-2024 End: 05-96-7974Swwrmh outpatient new 20 minutesNatalie A Felter FRUIT ROOM HAND-INSULATION WORKER INTERIOR SURFACE Work Phone: noms SWS DERMComment on above:Inflamed seborrheic keratosis (Primary Dx); Seborrheic keratosisStart: 03-29-2024 End: 12-68-6252kdzrwescjhIMKOVNZ A FELTERNot AvailableStart: 90-32-5613Bpe- patient / Non-visitCount Includes [facility] Phys[facility] GroupMult[facility] Work Phone: Start: 02-22-2024 End: 52-69-1005jypsufqwaaOdcrmfnliLake County [facility] Work Phone: Start: 02-22-2024 End: 65-29-8124Qcfpfhx encounter procedureCount Includes [facility] Work Phone: Start: 12-08-2023 End: 17-70-6908Dievolq encounter procedureFiraugusta health Phys[facility] Work Phone: Start: 09-12-2023 End: 86-54-6976cgtuaendjpKqqcxz Mattson Other [employer] Other Start: 93-08-3029Xeuqerkld encounterMarcia SrinivasanSamaritan North Health Centertart: 05-17-2023 End: 62-73-2677mcarvonmrdXmprzf Mattson Other [employer] Other Start: 60-57-9825Dnawkb outpatient visit 15 minutes Tiara MattsonSamaritan North Health Centertart: 05-06-2023 End: 38-61-2910xarwksubcyRujvia Mattson Other [employer] Other Start: 20-18-1723Hmkhds outpatient visit 15 minutes Tiara MattsonSamaritan North Health Centertart: 04-20-2023 End: 76-33-3519lktagkndjmZqrbav Mattson Other [employer] Other Start: 52-55-2357Ahlagyjve encounterMarcia SrinivasanSamaritan North Health Centertart: 03-01-2023 End: 69-28-6194bhtxrytxcrAtnxml Mattson Other [employer] Other Start: 81-49-4101Ypwybfj evaluation of patient and reportMarcia SrinivasanSamaritan North Health Centertart: 11-16-2022 End: 78-14-1372olpuhfmzqsRppucy Mattson Other [employer] Other Start: 10-79-0112Hkfdzsu evaluation of patient and reportMarcia [facility] Hospitaltart: 11-12-2022 End: 74-35-8379pbyzxvlfzbTtsvqr Srinivasan Other [employer] Other Start: 82-31-1721Tsbdgimpy encounterMarcilauren Crowell [facility] Hospitaltart: 10-27-2022 End: 51-72-2641qbutrobjbdZomjwc Srinivasan Other [employer] Other Start: 53-59-5644Lyrzszkbb encounterTiara Mojica [facility] ClinicStart: 09-17-2022(Televisit) TelevisitTiara Mojica [facility] Centertart: 09-17-2022 End: 71-33-0424kaolkipjhmOmgsas Srinivasan Other [employer] Other Start: 03-25-2022 End: 02-24-1635tnzjxunxvvMD TIARA Catalan BRAUNFacility:U6Vntpt: 03-10-2022 End: 06-34-0835ybtiuceusbUV TIARA Catalan BRAUNFacility:A0Yamhy: 06-09-2021 End: 94-02-5119cimeqkdgzlRB SRINIVASA BALLFacility:D6Mcgid: 05-04-2021 End: 76-58-6526iszggpzkdkKYMOY PARKERFacility:H1 Procedures DateProcedureProcedure DetailPerforming ClinicianStart: 59-36-6651AWDR REPAIR Sarah Silveira MD Work Phone: Start: 46-70-2806LYRX EXCISIONSarah Silveira MD Work Phone: Start: 82-10-5752XION / NAIL BIOPSYRyfrankline Jethro FERNANDEZ Work Phone: Start: 98-61-3454Ehxgcxysv colonoscopyTiara Mattson MD Work Phone: Start: 28-82-8719NSCHAEIWEVR SKIN LESIONNatalie Lauren Hansoner FRUIT ROOM HAND-INSULATION WORKER INTERIOR SURFACE Work Phone: start: 05-98-7724Djttimmg identified in Urine by CulturePHYSICIAN NO FAMILYStart: 96-02-2983RNZSIEEHOOB SKIN LESIONNatalie A Ángel FRUIT ROOM HAND-INSULATION WORKER INTERIOR SURFACE Work Phone: Start: 19-86-2410Qcwnqmmqt mammographyTiara Mattson Other Start: 77-41-1536Iocewcv examination of patientTiara Mattson Other Screening for malignant neoplasm of breastTiara Mattson Other Viral screeningTiara Mattson Other Plan of Treatment DateCare ActivityDetailAuthorStart: 06-25-2025 End: 77-88-7554Meamlqz encounter xgxsiioun81/18/2025 10:40 AM EST Office Visit [facility] [address] [place] [address] Agustín Neal, FRUIT ROOM HAND-INSULATION WORKER INTERIOR SURFACE [address] [place] [address] N[facility] SWS DERMStart: 01-11-2025 End: 27-51-2642Ffhshoo encounter bdcnwqfeg39/06/2025 10:30 AM EDT Office Visit [facility] [address] [place] [address] Sarah Silveira MD [address] [place] [address] ArrivedNOMS SWS DERMComment on above:ArrivedStart: 12-10-2024 End: 78-48-0073Iezkclc encounter rmpheuwls76/05/2025 2:20 PM EDT Office Visit [facility] [address] [place] [address] Agustín Neal, FRUIT ROOM HAND-INSULATION WORKER INTERIOR SURFACE [address] [place] [address] NOMS SWS DERMStart: 12-07-2024 End: 83-78-0541Xdghqeh encounter procedureNOMS PCF ORTHOComment on above:Arrived Start: 12-06-2024 End: 31-56-8640Vwgeniv encounter qdhytcydk83/01/2025 10:20 AM EDT Office Visit [facility] [address] [place] [address] Faisal Morelos PA [address] [place] [address] ArrivedNOMS SWS DERMComment on above:ArrivedStart: 12-03-2024 End: 03-44-1218Drsgxou encounter procedureNOMS FB ORTHOPAEDICSComment on above: ArrivedStart: 62-15-5651KjjturmqkCorey Hospitaltart: 05-07-2024 Bacteria identified in Urine by CultureCorey Hospitaltart: 03-29-2024 End: 88-37-6932Qsyrejs encounter zhenrcjim64/22/2024 9:20 AM EDT Office Visit [facility] [address] [place] [address] Agustín Neal, FRUIT ROOM HAND-INSULATION WORKER INTERIOR SURFACE [address] [place] [address] ArrivedNOMS SWS DERMComment on above: ArrivedStart: 77-78-5109Ddfzithtz for malignant neoplasm of breastMammogramNOMS HealthcareStart: 67-16-6111Kakzsqjnt for malignant neoplasm of cervixNOMS HealthcareStart: 43-71-4496Basdzitef for malignant neoplasm of cervixPap Smear NOMS HealthcareStart: 90-94-1013Ivzltcudd for malignant neoplasm of colonNOMS HealthcareDermatopathology examDermatopathology exam Pathology and Cytology Timed Neoplasm of unspecified behavior of bone, soft tissue, and skin Release Upon Ordering for 1 Occurrences starting 12/06/2024[facility] Work Phone: comment on above:Release Upon Ordering for 1 Occurrences starting 12/06/2024Dermatopathology examDermatopathology exam Pathology and Cytology Timed Squamous cell cancer of skin of forearm, left Rel ease Upon Ordering for 1 Occurrences starting 01/11/2025[facility] Work Phone: comment on above:Release Upon Ordering for 1 Occurrences starting 01/11/2025Patient EducationHemorrhoids Colon polyps Know your [facility] Work Phone: XR Wrist - right 2 ViewsXR wrist 1 or 2 views right Imaging Routine Right wrist pain 12/07/2024 11:38 AM EDMOUNT[facility] [employer] Work Phone: Immunizations Immunization DateImmunizationNotesCare IfpzebyaIrmglkmm22-44-7177jpnpbn vaccine, liveMarcia Mattson Other [facility]02-11-2022COVID-19 Vaccine Pfizer - Documentation Purposes OnlyTiara Mattson Other [facility]02-11-2022zoster vaccine, liveMarcia Mattson Other [facility]09-21-2021influenza virus vaccine, split virus (incl. purified surface antigen)Tiara Mattson Other [employer] Other [id number] virus vaccine, unspecified formulationHenry [facility] Hospital Payers DatePayer CategoryPayerPolicy [id number] Health InsuranceMEDICAL MUTUAL Member Subscriber Plan / Payer (Effective 2023- Present) Name: Kim Crane Relation to Subscriber: Self Name: Kim Crane Payer ID: Not on file Type: Not on file Address: [address] [id number] [facility] [id number] 2023-Present [address] [place] [id number] [id number] 2.16.840.1.153329.3.57[id number] 2.16.840.1.930286.3.57[id number] 2.16.840.1.070806.3.57[id number] 2..840.1.162226.3.579.2.557544-22-9533Vfmpiei5005593 2..840.1.214858.3.579.2.490551-83-1208Mpuyzaf1058102 2..840.1.172739.3.579.2.[id number] 2..840.1.914202.3.579.2.218373-08-9388Brqzuyx2424102 2..840.1.207575.3.579.2.353220-41-8677Nhcqscw2857506 2..840.1.300629.3.579.2.[id number] 2.16.840.1.348508.3.579.2.689930-25-8597Whno-onq66731161934-54-8205Dwnzyvi [id number] 2.16.840.1.1[id number] 2.16.840.1.2523[id number] 2.16.840.1.463386.3.579.2.531 Social History DateTypeDetailFacilityUnknown if ever smokedMonterey [employer] Other Start: 06-25-2024 End: 76-25-8950Mcg Assigned At [facility] [employer] Other Start: 11-29-2011 End: 36-44-4823Mumxlqg smoking status NHISSmoker (finding)[facility]: 28-35-4374Roc Assigned At [facility]: 05-11-2023 End: 25-64-7154Otkvlxu smoking status NHISSmokes tobacco dailyNOMS Healthcare History of tobacco useCigarette SmokerNOMS HealthcareStart: 05-11-2023 End: 16-05-1799Rjjsdas use and exposureSmokeless tobacco non-userNOMS Healthcare Start: 06-25-2024 End: 24-60-1873Bahcjgjzh beverage intakeEx-drinker (finding)[facility] Start: 06-25-2024 End: 96-69-1422Unzqhja of Social functionNOMS HealthcareStart: 68-84-0602Stvdjv identityIdentifies as female gender (finding)[facility] HealthcareStart: 08-21-2024 End: 55-99-8879LakGmwbmo (finding)[facility] Goals DatePatient GoalDesired Activity/State Clinical Notes 09-17-2022 to 04-10-2025 Note Date & AlafXvxhIqklubub46-59-3728 NoteOrthopedic Surgery 03/27/2025 Excision Volar Wrist Ganglion Cyst - Right Kim Crane comes in for a post-operative visit after having a right with volar ganglion excision done on 03/27/2025. Today she is doing well and has no unexpected complaints. Physical Exam: The incision site is healing well. There is no erythema, drainage or signs of infection. Tenderness is mild and localized to the surgical site. Sensation is present to light touch. Range of motion is appropriate for this time. Assessment: Kim Crane is a 54 y.o. year old female with right wrist volar ganglion Plan: The sutures were removed in the clinic today. I instructed the patient on how to do scar massage, and then apply lotion to the incisional site. She can begin using the hand and returning to activities as tolerated. We will see her back in the clinic as needed.[facility]08-20-2025 Note Patient: Kim Crane Procedure Summary Date: 03/27/25 Room / Location: [address] [place] OR Anesthesia Start: 844 Anesthesia Stop: 932 Procedure: EXCISION VOLAR WRIST GANGLION CYST (Right: Wrist) Diagnosis: Ganglion (Ganglion [M67.40]) Surgeons: Chilango Qureshi MD Responsible Provider: Scott Barnard MD Anesthesia Type: regional ASA Status: 2 Anesthesia Type: regional Vitals Value Taken Time BP 123/85 03/27/25 09:30 Temp 36 ???C (96.8 ???F) 03/27/25 09:30 Pulse 95 03/27/25 09:30 Resp 23 03/27/25 09:30 SpO2 97 % 03/27/25 09:30 Anesthesia Post Evaluation Patient location during evaluation: PACU Patient participation: complete - patient participated Level of consciousness: awake Pain score: 1 Pain management: adequate Airway patency: patent Cardiovascular status: acceptable Respiratory status: acceptable Patient is hemodynamically stable and is able to be discharged from PACU per anesthesia protocol. No notable events documented.[facility]08-20-2025 Note Peripheral Block Patient location during procedure: pre-op Start time: 03/27/2025 8:28 AM End time: 03/27/2025 8:38 AM Reason for block: primary anesthetic Staffing Performed: resident/GOVERNMENT RELATIONS ANALYST/CAA Anesthesiologist: Scott Barnard MD Resident/GOVERNMENT RELATIONS ANALYST: Ghassan Schwab MD Preanesthetic Checklist Completed: patient identified, IV checked, site marked, risks and benefits discussed, surgical consent, monitors and equipment checked, pre-op evaluation and timeout performed Peripheral Block Patient position: supine Prep: ChloraPrep Patient monitoring: continuous pulse ox, ekg monitor tech and heart rate Block type: axillary Laterality: right Injection technique: single-shot Guidance: ultrasound guided Needle Needle gauge: 22 G Needle length: 2 in Needle insertion depth: 4 cm Medications Administered midazolam (VERSED) IV - intravenous 2 mg - 03/27/2025 8:28:00 AM BUPivacaine (Marcaine) injection 0.5 % (5 mg/mL) - injection 100 mg - 03/27/2025 8:28:00 AM Assessment Injection assessment: negative aspiration for heme, no paresthesia on injection, incremental injection and local visualized surrounding nerve on ultrasound Paresthesia pain: none Heart rate change: no Slow fractionated injection: yesProMedica [facility]08-20-2025 NotePatient: Kim Crane Procedure Information Date/Time: 03/27/25829 Procedure: EXCISION VOLAR WRIST GANGLION CYST (Right: Wrist) Location: [facility] OR [address] [place] [address] OR Surgeons: Chilango Qureshi MD Relevant Problems Anesthesia (within normal limits) Cardio (within normal limits) Endo (within normal limits) GI (within normal limits) /Renal (within normal limits) Neuro/Psych (within normal limits) Pulmonary Tobacco use, COPD Clinical information reviewed: Tobacco Allergies Meds Med Hx Surg Hx OB Status Fam Hx Soc Hx Past Medical History: Diagnosis Date Arthritis Arthritis of left knee Depression Ganglion cyst of volar aspect of right wrist Neoplasm of unspecified behavior of bone, soft tissue, and skin Squamous cell cancer of skin of forearm, left Physical Exam Airway Mallampati: II TM distance: >3 FB Neck ROM: full Cardiovascular - normal exam Dental - normal exam Pulmonary - normal exam Neurological Abdominal Anesthesia Plan ASA 2 regional The patient is not a current smoker. Patient was not previously instructed to abstain from smoking on day of procedure. Patient did not smoke on day of procedure. intravenous induction Anesthetic plan and risks discussed with patient. Plan discussed with CAA. Additional Equipment RequestsUnSelect Medical [facility]07-[facility]-20[facility] Evaluation note* Diagnosis Onset Date Resolution Status Admit Date Seasonal allergic rhinitis acuteJuly 2024 11:36amMaxillary sinusitisacuteAugust 2024 1:22pm [facility] Work Phone: 1(211) 299-397006-17-2025 NoteOrthopedic Surgery Subjective Pain of the Right Wrist 01/22/25 Kim Crane is a 54 y.o. right-hand dominant female presenting for evaluation of right wrist recurrent ganglion cyst. She has had this cyst for many years. She had it initially removed 5-6 years ago at an outside facility, and the cyst recurred 2 years. She notes numbness and tingling of the index and long digits of the right hand on the volar aspect. 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 She is interested in surgical resection of the ganglion cyst. She is a current smoker (1 PPD) with a 30 pack year history. Review of Systems unremarkable aside from what is noted in HPI History Surgical History[1] Medical History[2] Objective General: Body mass index is 27.46 kg/m???. No acute distress, comfortable Respiratory: Unlabored breathing with normal rate, no cough Cardiovascular: Warm well perfused extremities Psych: Appropriate mood behavior Right Hand: Inspection- no ecchymosis, no erythema, no deformity Prior incision line over the dorsal radial wrist well-healed. Soft tissue mass present, mobile, nontender to palpation, 2cm in diameter. Index and long finger have palpable nodules proximal to the A1 carleen, no tenderness, no triggering. Strength: benefits clerk 5/5, thumb 5/5, interossei 5/5 Sensation: intact over median, ulnar, and radial nerve distributions Tinel (+) at carpal tunnel, Carpal compression test (-), and Tarik's test (-) Cardiovascular: Well-perfused digits Imaging personally reviewed: No imaging reviewed today. Assessment/Plan Kim Crane is a 54 y.o. year old female with recurrent right wrist volar ganglion cyst. She was counseled on surgical management of the cyst. She is agreeable to surgery. She has signed consent form in clinic today. She was educated and agreeable to risks of surgery including: Infection, bleeding, damage to nearby structures including motor and sensory nerves, temporary or permanent loss of function, need for future additional surgery, pain at surgical site, cardiopulmonary risks associated with sedation. Follow-up in clinic postoperatively. Dev Sanford, MS4 01/22/2025 I was physically present with the medical student. I have personally performed (or re-performed) the physical exam and medical decision making for the patient. I personally verified the medical student's documentation. I made pertinent changes as necessary to ensure accurate documentation. Additional Notes/Findings: She has a recurrent volar wrist ganglion. It is symptomatic and causes achy discomfort with use of her arm. She would like to have this removed. I think that is appropriate and indicated. We will set her up for excision of the recurrent volar ganglion on her right wrist The surgical procedure along with the risks and benefits were discussed today in the clinic. Consent for the surgery was reviewed and signed. We will see her back in clinic following the procedure. [1] History reviewed. No pertinent surgical history. [2] Past Medical History: Diagnosis Date [facility]06-06-2025 History of Present illness Narrative* Sarah Silveira MD - 01/11/2025 10:30 AM EDT Images from the original note were not included. Subjective Kim Crane is a 54 y.o. female who presents for the following: Excision. Location: Left forearm Date of biopsy: 12/06/2024 Diagnosis: Invasive squamous cell carcinoma Pre-Op Checklist: History of pacemaker/defibrillator: No History of joint replacement in the past 2 years: No History of HIV/Hepatitis B/Hepatitis C: No Latex allergy: No Is the patient currently on a blood thinner? No. All pertinent medical history, medications, and allergies were reviewed. Surgical assistants: Jose Mosley CMA, PAOLO Driscoll Objective Well appearing patient in no apparent distress; mood and affect are within normal limits. Skin Exam 1. SQUAMOUS CELL CANCER OF SKIN OF FOREARM, LEFT Left Forearm Erythematous macule at the biopsy site Skin excision Lesion length (cm): 1.2 Lesion width (cm): 0.7 Margin per side (cm): 0.4 Total excision diameter (cm): 2 Informed consent: discussed and consent obtained Informed consent comment: Risks and possible complications were discussed as noted on the consent form. The consent form was signed prior to the procedure. Timeout: patient name, date of , surgical site, and procedure verified Timeout comment: Patient and provider identified site. Site was marked and excision was drawn out. Photo was taken and shown to patient, patient verified this is the correct site. Procedure prep: Patient was prepped and draped in usual sterile fashion (The planned incision lineswere drawn along relaxed skin tension lines, if possible, to minimize scarring and deformity of surrounding structures.) Prep type: Chlorhexidine Anesthesia: the lesion was anesthetized in a standard fashion Anesthesia comment: The local anesthetic was injected to create a field block at the site of the procedure. Anesthetic: 1% lidocaine w/ epinephrine 1-100,000 buffered w/ 8.4% NaHCO3 Instrument used: #15 blade Instrument used comment: Incisions were made as drawn, and the surrounding tissue was undermined until the skin edges could be approximated without undue tension. Any tissue redundancies were removed. Hemostasis achieved with: electrodesiccation Additional details: Amount of lidocaine used: 6.0 ml Estimated blood loss: < 1.0 ml Skin repair Complexity: Intermediate Final length (cm): 2.8 Reason for type of repair: allow closure of the large defect Undermining: edges undermined Undermining comment: The surrounding tissue was undermined until the skin edges could be approximated without undue tension. Any tissue redundancies were removed. Subcutaneous layers (deep stitches): Suture size: 4-0 Suture type: Monocryl (poliglecaprone 25) Stitches: Buried horizontal mattress (Closure was performed in a layered fashion with subcutaneous tissue closed first using tension-bearing absorbable sutures to the level of the superficial fascia.) Fine/surface layer approximation (top stitches): Suture size: 4-0 Suture type: Monocryl (poliglecaprone 25) Stitches: running subcuticular Stitches comment: Epicuticular skin sutures were then placed with minimal tension. Steri strips applied. Outcome: patient tolerated procedure well with no complications Post-procedure details: sterile dressing applied and wound care instructions given Post-procedure details comment: It was emphasized to the patient to contact the office for any signs of infection, uncontrollable bleeding, or complications. Dressing type: bandage Specimen A - Dermatopathology exam Differential Diagnosis: SCC, invasive Check Margins: yes Previous accession number: [id number] Excision today. See operative report. Return to clinic prior to next scheduled visit for any signs or symptoms of recurrence, reviewed the signs and symptoms. Follow up: 06/25/2025 skin exam documented in this encounterGeneral Leonard Wood Army Community [id number] History of Present illness Narrative* Jr. Fredrick Mcgowan, - 12/07/2024 11:30 AM EDT Images from the original note were not included. HISTORY OF PRESENT ILLNESS: EST PT Kim Arroyohbun is an 54 y.o. @ female. (EST PT W/ SHARIF SANDERSON) - (R) WRIST CYST - STARTING TO BOTHER HER MORE- WOULD LIKE TO DISCUSS SURGERY. HX (R) WRIST CYST EXCISION PER DR. RODGERS YEARS AGO. XR (R) WRIST TODAY 12/07/24 MAG HAS CYST OVER RADIAL ASPECT OF WRIST FOR MANY YEARS. DENIES CHANGE IN SIZE. ACHES IN WRIST AND HAND. WORSE WITH USE. INTERMITTENT TINGLING IN FINGERS. +IBU PRN. DENIES SWELLING. 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 DOES NOT WAKE AT HS, BUT NOTES MORE PAINFUL WHEN SHE FIRST WAKES UP IN THEMORNING RT HANDED. ALLERGIES: Allergies Allergen Reactions Varenicline Hives HOME MEDICATIONS: Current Outpatient Medications Medication Instructions acyclovir (Zovirax) 400 MG tablet citalopram (CeleXA) 40 MG tablet Take by mouth ibuprofen 800 MG tablet Nurtec 75 MG tablet dispersible pantoprazole (PROTONIX) 40 mg, Daily scopolamine (Transderm-Scop) 1 mg/72 hr patch 72 hour patch tiZANidine (Zanaflex) 4 MG tablet PHYSICAL EXAM: Hand/Wrist Musculoskeletal Exam Inspection Right Right hand/wrist inspection is normal. Erythema: none Ecchymosis: none Edema: none Deformity: none Wrist - prior incision: palmar Incision: well-healed Palpation Right Wrist tenderness to palpation: radial carpal joint Wrist tenderness to palpation comment: DENIES PAIN TO SNUFF BOX OR SCAPHO-LUNATE. Range of Motion Right Hand Right hand range of motion is normal. Right Wrist Right wrist range of motion is normal. Active Extension: 80 Passive Extension: 80 Active Flexion: 80 Passive Flexion: 80 Active Pronation: 90 Passive Pronation: 90 Active Supination: 90 Passive Supination: 90 Strength Right Hand Right hand strength is normal. Right Wrist Right wrist strength is normal. Extension: 5/5. Flexion: 5/5. Radial deviation: 5/5. Ulnar deviation: 5/5. Pronation: 5/5. Supination: 5/5. Neurovascular Right Right neurovascular exam is normal. Radial pulse: normal and 2+ Capillary refill: <3 sec and brisk Ulnar nerve sensory distribution: normal Median nerve sensory distribution: normal Superficial radial nerve sensory distribution: normal Special Tests Special tests additional comments: Recurrent ganglion noted to Right Wrist General Constitutional: appears stated age Labored breathing: no Neurological: alert and oriented x3 Skin: intact Lymphadenopathy: none Vitals: There is no height or weight on file to calculate BMI. Tobacco Use: High Risk (12/07/2024) Patient History Smoking Tobacco Use: Every Day Smokeless Tobacco Use: Never Passive Exposure: Not on file Alcohol Use: Not on file IMAGING: Procedures Orders Placed This Encounter Procedures XR wrist 1 or 2 views right Is the patient ?: No Reason for exam:: RT WRIST PAIN Ambulatory referral to Orthopaedic Surgery Referral to Dr. Qureshi; Recurrent ganglion cyst volar radial aspect RT wrist. Standing Status: Future Expected Date: 12/07/2024 Expiration Date: 06/09/2025 Referral Priority: Routine Referral Type: Consultation Referral Reason: Specialty Services Required Referred to Provider: Chilango Qureshi MD Requested Specialty: Orthopaedic Surgery Number of Visits Requested: 1 ASSESSMENT: ICD-10-CM 1. Right wrist pain M25.531 XR wrist 1 or 2 views right 2. Ganglion cyst of volar aspect of right wrist M67.431 Ambulatory referral to Orthopaedic Surgery PLAN: We have discussed her case with her length she has a recurrent ganglion possibly pushing on a superficial nerve. We have recommended that she follow up with Dr. Sher for recurrent ganglion volar radial aspect right wrist will see her back on a when necessary basis. Questions answered in laymen terms at the bedside. The diagnosis, home exercise plan and any ongoing restrictions/ recommendations reviewed. If unable to be reached in office, I recommend evaluation at nearest Emergency Room if any symptoms worsened or new symptoms develop for requiring urgent evaluation. documented in this encounterGeneral Leonard Wood Army Community [id number] History of Present illness Narrative* JIM Tejada - 12/06/2024 10:20 AM EDT Images from the original note were not included. Lesions: Location: left forearm Duration: months Quality: painful Modifying factors: rubs on clothing Associated symptoms: tender, growing Treatments: none Established patient of ALICIA Weinstein All pertinent medical history, medications, and allergies were reviewed. General Exam: alert, oriented to person, place, and time, normal affect, well appearing Unaccompanied A focused exam completed based on patient reported problems, see below: Skin Exam 1. NEOPLASM OF UNSPECIFIED BEHAVIOR OF BONE, SOFT TISSUE, AND SKIN Left Forearm Hyperkeratotic papule Lesion biopsy Type of biopsy: tangential Informed consent: discussed and consent obtained Informed consent comment: The risks and benefits of the biopsy were discussed. Risks include but are not limited to bleeding, infection, scarring, pain, and nerve damage. An opportunity to ask questions prior to the procedure was permitted and all questions were answered. Patient was prepped and draped in usual sterile fashion: area cleansed with alcohol. Anesthesia: the lesion was anesthetized in a standard fashion Anesthetic: 1% lidocaine w/ epinephrine 1-100,000 buffered w/ 8.4% NaHCO3 Instrument used: DermaBlade Hemostasis achieved with: electrodesiccation Outcome: patient tolerated procedure well Outcome comment: The specimen was placed in a prelabeled formalin container to be sent for pathology Post-procedure details: sterile dressing applied and wound care instructions given Post-procedure details comment: Emphasized need to contact clinic for any signs of infection, uncontrollable bleeding, or complications. Dressing type: bandage Additional details: Photo taken Amount of lidocaine used: 1.0 cc Specimen A - Dermatopathology exam Differential Diagnosis: SCC vs. ISK vs. Prurigo nodule Check Margins: No Size of lesion: 1.2 x 0.7 cm Biopsy today, see procedure note. Next Visit: pending biopsy results documented in this encounterGeneral Leonard Wood Army Community [id number] Evaluation note* Diagnosis Onset Date Resolution Status Admit Date Chronic tension headaches acuteApril 2024 2:32pmMotion sicknessacuteApr2024 2:32pmSkin lesion of left armacuteApril 2024 2:32pmSeasonal allergic rhinitisacute February 19, 2025 11:36am [facility] Work Phone: 1(170) 537-996104-28-2025 History of Present illness Narrative* Sharif Sanderson NP - 12/03/2024 1:30 PM EDT Images from the original note were not included. HISTORY OF PRESENT ILLNESS: EST PT Kim Crane is an 54 y.o. @ female. EST PT WITH NEW C/O RT WRIST CYST FOR A WHILE. STARTING TO BOTHER HER MORE. HX CYST EXC PER DR RODGERS YEARS AGO. HAS CYST OVER RADIAL ASPECT OF WRIST. DENIES CHANGE IN SIZE. ACHES IN WRIST AND HAND. WORSE WITH USE. INTERMITTENT TINGLING IN FINGERS. +IBU PRN. DENIES SWELLING. 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 DOES NOT WAKE AT HS. RT HANDED. ALLERGIES: Allergies Allergen Reactions Varenicline Hives HOME MEDICATIONS: Current Outpatient Medications Medication Instructions citalopram (CeleXA) 40 MG tablet Take by mouth ibuprofen 800 MG tablet Nurtec 75 MG tablet dispersible pantoprazole (PROTONIX) 40 mg, Daily tiZANidine (Zanaflex) 4 MG tablet PHYSICAL EXAM: Right Hand Exam Tenderness Right hand tenderness location: pain with wrist ROM. Muscle Strength Wrist extension: 5/5 Wrist flexion: 5/5 Heat Treater Head: 5/5 Other Erythema: absent Scars: present Sensation: normal Pulse: present Comments: Ganglion cyst over the radial volar aspect under previous incision. Vitals: Body mass index is 27.46 kg/m . Tobacco Use: High Risk (12/03/2024) Patient History Smoking Tobacco Use: Every Day Smokeless Tobacco Use: Never Passive Exposure: Not on file Alcohol Use: Not on file IMAGING: Procedures No orders of the defined types were placed in this encounter. ASSESSMENT: ICD-10-CM 1. Ganglion cyst of volar aspect of right wrist M67.431 PLAN: I reviewed exam findings with patient and discussed treatment options. I discussed options of surgical and non surgical treatment. Risks/benefits of each and chances for success/ failure. Discussion included but was not limited to the risk of infection, blood clot, failure to improve and need for additional surgery. The patient was advised that surgery is not likely to make them pain free. I answered all of the patients questions. She states she would like to further discuss excision of ganglion cyst with Dr. Mcgowan. Questions answered in laymen terms at the bedside. The diagnosis, home exercise plan and any ongoing restrictions/ recommendations reviewed. If unable to be reached in office, I recommend evaluation at nearest Emergency Room if any symptoms worsened or new symptoms develop for requiring urgent evaluation. documented in this encounterGeneral Leonard Wood Army Community HospitalGrvbpilesy18-11-1195 Telephone encounter Note* Telephone Encounter - Octavia Arriaga 11/13/2024 10:31 AM EDT Patient scheduled [facility] [id number] Miscellaneous Notes* Telephone Encounter - Octavia Godinezgger - 11/13/2024 10:31 AM EDT Patient scheduled * Telephone Encounter - Octavia Alex - 11/13/2024 10:15 AM EDT Patient called in stating removed a cyst in the past. The cyst came back. Can the cyst be drained? Please advise [phone]. documented in this encounterGeneral Leonard Wood Army Community HospitalKsewgntmun53-42-0340 Telephone encounter Note* Telephone Encounter - Octavia Cesarer - 11/13/2024 10:15 AM EDT Patient called in stating removed a cyst in the past. The cyst came back. Can the cyst be drained? Please advise [phone]. [facility] [id number] [place] [address] Colonoscopy Procedure Report Signed Patient: Kim Crane MR#: [id number] : 1970 Acct:[id number] Age/Sex: 54 / F Adm Date: 5 Loc: Room: Type: [facility] Attending Dr: Vanda Hinton DO Copies to: DO Tiara Sahu MD~ Colonoscopy Date/Provider 08/21/2024 Vanda Hinton DO Narrative Procedure: Colonoscopy with jumbo forceps and cold snare polypectomy. Indication: Screening for colon cancer. No prior colonoscopy. Pre-operative diagnosis: Screening for colon cancer Post-operative diagnosis: Three polyps removed, melanosis coli, internal hemorrhoids, otherwise normal colon and TI. Sedation: propofol per anesthesia dept O2 oximetry, hemodynamic monitoring was performed pre, during, and post procedure. Patient was identified, H&P completed, patient was given full explanation of the procedure as well as associatedrisks and written consent wasobtained prior to procedure. Patient expressed complete understanding of the procedure as well as alternatives to the procedure and to anesthesia and agreed to proceed with the procedure as indicated. Patient was immediately reassessed prior to IV sedation. Under IV sedation, patient was placed in the left lateral decubitus position. Digital rectal exam was performed and normal. Colonoscope was inserted and passed proximally to the cecum, which was identified by the ileocecal valve, appendiceal orifice and cecal floor. The terminal ileum was intubatedand examined. Colonoscope was slowly withdrawn with the findings as below. [place] bowel prep score was adequate. Findings: Terminal ileum: Normal Cecum: 5 mm sessile polyp removed with jumbo forceps and sent to pathology Ascending colon: 3 mm sessile polyp removed with jumbo forceps and sent to pathology. 7 mm sessile polyp removed with cold snare, retrieved and sent to pathology Hepatic flexure: Normal. Transverse colon: Normal. Splenic flexure: Normal. Descending colon: Normal. Sigmoid colon: Normal. Rectum: Normal. Retroflexed views: Rectum did show small internal hemorrhoids. There was mild melanosis coli throughout the colon Biopsy taken: Yes Complications: None EBL: Minimal Recommendations: -Repeat colonoscopy in 3 years with a 2-day bowel prep -Follow up pathology -Fiber rich diet and increase water intake -Follow up in the office as needed -Follow up with PCP Following a period of recovery, patient was seen and given full explanation of the procedure. Patient tolerated the procedure well and will be discharged in satisfactory, stable condition. Vanda Hinton DO Documented By: Vanda Hinton DO 08/21/2411 Signed By: 08/21/24 0842 [facility]01-14-2025 [place] [address] Gastroenterology H&P Signed Patient: Kim Crane MR#: [id number] : 1970 Acct:[id number] Age/Sex: 54 / F Adm Date: 5 Loc: Room: Type: [facility] Attending Dr: Vanda Hinton DO Copies to: DO Tiara Sahu MD~ Date of Service: 08/21/2024 HISTORY & PHYSICAL: Patient's history with special attention to the cardiovascular, pulmonary systems and the current problem was reviewed with the patient immediately prior to the procedure. Present medications and doses reviewed in the EMR. Allergies and pertinent laboratory tests were also re viewedat this time in the EMR. The physical examination, as below, was then performed. Indication, assessment and HPI: 54-year-old female who presents for screening colonoscopy. She has chronic constipation at baseline. No prior colonoscopy. Family history of GI malignancy? No PHYSICAL EXAMINATION General appearance: cooperative, NAD Skin: No jaundice, no rash or lesions Head: NCAT Eyes: Anicteric Neck: Supple Lungs: Normal respiratory effort, no use of accessory muscles Abdomen: Soft, nondistended Neuro: No focal deficits, Ox3. REVIEW OF SYSTEMS Constitutional: Denies malaise, fevers Cardiovascular: Denies chest pain, palpitations Respiratory: Denies shortness of breath, wheezing Gastrointestinal: As per HPI Genitourinary: Denies dysuria, polyuria Musculoskeletal: Denies joint swelling, joint stiffness Neurological: Denies confusion, numbness, tingling Endocrine: Denies fatigue Written informed consent obtained from the patient. Risks (including but not limited to perforation, infection, bloating, bleeding, need for emergent surgeryand loss of life), benefits and alternatives explained and questions answered. The patient verbalized understanding. Based on history patient is an appropriate candidate for the procedure. Vanda Hinton DO Present medication and doses reviewed in the EMR Documented By: Vanda Hinton DO 08/21/24 0810 Signed By: 08/21/24818 [facility]12-31-2024 Evaluation note* Diagnosis Onset Date Resolution Status Admit Date Sinusitis, acute maxillary acuteDecember 2023 9:45am [facility] Work Phone: 1(282) 198-523111-18-2024 History of Present illness Narrative* Agustín Neal, AVA-SADIE - 06/25/2024 10:10 AM EST Skin Check Location: Patient requests a full body skin examination Dermatologic history: no history of skin cancer, no history of atypical moles Last visit: 1 year ago Lesions: Location: Cheeks, mid chest Duration: months Quality: itchy Modifying factors: aggravated by picking Associated symptoms: scaly Treatments: none All pertinent medical history, medications, and allergies were reviewed. General Exam: alert, oriented to person, place, and time, normal affect, well appearing Scalp, Examined , exam limited by hair Right leg Examined Head, Face Examined Left leg Examined Neck Examined Right foot Examined tattoo on dorsal foot Chest Examined Left foot Examined Back Examined tattoo across upper back Buttocks Examined Abdomen Examined Digits,nails: Examined Right arm Examined Patient wearing nail tamazight, Denies dark streaks under finger nails, Denies darkstreaks on toenails Left arm Examined tattoo on forearm Lymphatics: Not examined Hands Examined 1. Melanocytic nevus of trunk Scattered benign appearing, regular brown to light brown melanocytic papules and macules with similar morphology Counseled regarding these benign growths. Rarely, a nevus can develop into malignant melanoma, so any changing nevi should be promptly re-evaluated. 2. Inflamed seborrheic keratosis (6) Chest - Medial (Center), Right Buccal Cheek (2), Right Parotid Area (2), Right Zygomatic Area Inflamed seborrheic keratoses: brown stuck on verrucous scaly papules, symptomatic The patient was informed that symptomatic seborrheic keratoses are benign growths that become inflamed, itchy, tender, traumatized, caught on clothing, or bleed. Symptomatic lesions can be treated with cryotherapy or curretage. Thicker lesions treated with cryotherapy may require more than one treatment. The patient was instructed to notify the office if abnormal redness or tenderness develops atthe treatment site. Cryotherapy today, see procedure note. Diagnosis: Inflamed seborrheic keratosis Indication: Inflamed Consent: Verbal consent was obtained and risks were discussed, including, but not limited to risks of scarring, darker or accounts payable coordinator pigmentary changes, recurrence, incomplete removal and infection. Method: Liquid nitrogen was used to treat the lesion(s) with two 5-10 second freeze-thaw cycles Number of lesions treated: 6 Post-procedure instructions: Instructions were given verbally. The office will be contacted if the lesion fails to resolve despite treatment, or if a side effect develops such as abnormal crusting, scabbing, redness or tenderness Cryotherapy, skin lesion - Chest - Medial (Center), Right Buccal Cheek (2), Right Parotid Area (2),Right Zygomatic Area Next Visit: 1 [id number] History of Present illness Narrative* ANITA Bacon - 03/29/2024 9:20 AM EDT Lesions: Location: right cheek, nose, chest Duration: years Quality: itchy Modifying factors: aggravated by picking Associated symptoms: scaly Treatments: none New patient All pertinent medical history, medications, and allergies were reviewed. General Exam: alert , oriented to person, place, and time , normal affect, well appearing Unaccompanied A focused exam completed based on patient reported problems, see below: 1. Inflamed seborrheic keratosis (2) Mid Tip of Nose, Right Zygomatic Area Inflamed seborrheic keratoses: pink and brown stuck on verrucous scaly papule with surrounding erythema and bloody crust. The patient was informed that symptomatic seborrheic keratoses are benign growths that become inflamed, itchy, tender, traumatized, caught on clothing, or bleed. Symptomatic lesions can be treated with cryotherapy or curretage. Thicker lesions treated with cryotherapy may require more than one treatment. The patient was instructed to notify the office if abnormal redness or tenderness develops atthe treatment site. Cryotherapy today, see procedure note. Diagnosis: Inflamed seborrheic keratosis Indication: Inflamed Consent: Verbal consent was obtained and risks were discussed, including, but not limited to risks of scarring, darker or accounts payable coordinator pigmentary changes, recurrence, incomplete removal and infection. Method: Liquid nitrogen was used to treat the lesion(s) with two 5-10 second freeze-thaw cycles Number of lesions treated: 2 Post-procedure instructions: Instructions were given orally and in writing. The office will be contacted if the lesion fails to resolve despite treatment, or if a side effect develops such as abnormal crusting, scabbing, redness or tenderness Cryotherapy, skin lesion - Mid Tip of Nose, Right Zygomatic Area 2. Seborrheic keratosis Chest (Upper Torso, Anterior) Stuck on verrucous, variably pigmented papules and plaques. Patient was counseled regarding these benign growths. Removal is normally not necessary, but they may be removed if they are symptomatic or for cosmetic reasons. Next Visit: 1 year documented in this [facility]10-10-2023 Evaluation note* Encounter Date Diagnosis Assessment Notes Treatment Notes Treatment Clinical Notes May, Acute non-recurrent maxillary si nusitis (ICD-10 - J01.00) Finish antibiotic, stay hydrated. consider OTC meds for congestion relief. Call if symptoms do not resolve. [facility] 09-29-2023 Evaluation note* Encounter Date Diagnosis Assessment Notes Treatment Notes Treatment Clinical Notes Apr, Right medial knee pain (ICD-10 - M25.561) Hold ibuprofen. Try steroid burst through weekend. Agrees to xray and ortho referral. 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 Hold on PT until seen. [facility] 07-25-2023 Evaluation note* Encounter Date Diagnosis Assessment Notes Treatment Notes Treatment Clinical Notes Feb, Seasonal allergic rhinitis, unsp ecified trigger (ICD-10 - J30.2) [facility] 04-11-2023 Evaluation note* Encounter Date Diagnosis Assessment Notes Treatment Notes Treatment Clinical Notes Nov, Dysuria (ICD-10 - R30.0) [facility] 04-07-2023 Evaluation note* Encounter Date Diagnosis Assessment Notes Treatment Notes Treatment Clinical Notes Nov, Cold sore (ICD-10 - B00.1) [facility] 02-10-2023 Evaluation note* Encounter Date Diagnosis Assessment Notes Treatment Notes Treatment Clinical Notes Sep, Acute non-recurrent maxillary si nusitis (ICD-10 - J01.00) Take antibiotics as prescribed and finish course. [facility] Evaluation noteNo InformationN[facility]Can[facility] Other Evaluation note* Diagnosis Onset Date Resolution Status Dysuria acute [facility] Work Phone: Evaluation noteNo assessment information available [facility] Work Phone: Evaluation note* Diagnosis Onset Date Resolution Status Cough acuteDysuriaacute [facility] Work Phone: Evaluation note* Diagnosis Melanocytic nevus of trunk Benign neoplasm of skin of trunk, except scrotum Inflamed seborrheic keratosis [facility] Diagnosis Inflamed seborrheic keratosis- Primary Seborrheic keratosis [facility]* Diagnosis Ganglion cyst of volar aspect of right wrist- Primary [facility] Diagnosis Neoplasm of unspecified behavior of bone, soft tissue, and skin- Primary [facility]* Diagnosis Right wrist pain Pain in joint, forearm Ganglion cyst of volar aspect of right wrist [facility] Diagnosis Squamous cell cancer of skin of forearm, left- Primary documented in this encounter [facility] HealthcareHistory and physical note Author Vanda Hinton [facility] HospitalNote Date/TimeJanuary 2024 8:19am [place] [address] Gastroenterology H&P Signed Patient: Kim Crane MR#: [id number] : 1970 Acct:[id number] Age/Sex: 54 / F Adm Date: 5 Loc: Room: Type: [facility] Attending Dr: Vanda Hinton DO Copies to: DO Tiara Sahu MD~ Date of Service: 08/21/2024 HISTORY & PHYSICAL: Patient's history with special attention to the cardiovascular, pulmonary systems and the current problem was reviewed with the patient immediately prior to the procedure. Present medications and doses reviewed in the EMR. Allergies and pertinent laboratory tests were also re viewedat this time in the EMR. The physical examination, as below, was then performed. Indication, assessment and HPI: 54-year-old female who presents for screening colonoscopy. She has chronic constipation at baseline. No prior colonoscopy. Family history of GI malignancy? No PHYSICAL EXAMINATION General appearance: cooperative, NAD Skin: No jaundice, no rash or lesions Head: NCAT Eyes: Anicteric Neck: Supple Lungs: Normal respiratory effort, no use of accessory muscles Abdomen: Soft, nondistended Neuro: No focal deficits, Ox3. REVIEW OF SYSTEMS Constitutional: Denies malaise, fevers Cardiovascular: Denies chest pain, palpitations Respiratory: Denies shortness of breath, wheezing Gastrointestinal: As per HPI Genitourinary: Denies dysuria, polyuria Musculoskeletal: Denies joint swelling, joint stiffness Neurological: Denies confusion, numbness, tingling Endocrine: Denies fatigue Written informed consent obtained from the patient. Risks (including but not limited to perforation, infection, bloating, bleeding, need for emergent surgeryand loss of life), benefits and alternatives explained and questions answered. The patient verbalized understanding. Based on history patient is an appropriate candidate for the procedure. Vanda Hinton DO Present medication and doses reviewed in the EMR Documented By: Vanda Hinton DO 08/21/24 0810 Signed By: <Electronically signed by Vanda Hinton DO> 08/21/24 0819 [facility] Work Phone: History general Narrative - Reported* Type Description Date Medical History 2005-Breast Implants Medical HistoryLumbar back painMedical HistoryCervical migraine syndromeMedical HistoryContact dermatitis due to plantMedical HistoryChronic tension headaches Medical HistoryChronic GERDMedical HistoryRecurrent cold soresMedical History Atypical chest painSurgical Historybreast [id number] History [id number] HistoryVNUS-Vein [id number] HistorySEE SURGICAL [facility] Discharge instructions Additional Instructions DISCHARGE INSTRUCTIONS FOR COLONOSCOPY WHAT TO EXPECT: - You may feel full, gassy or cramping after your procedure. In some cases, this may be from a few hours to a day. Walking may help relieve the discomfort. - If you have polyp(s) removed you may note some minor bloody discharge after your first bowel movements. - You should begin to recover from anesthesia within 1 hour of the procedure, however may feel groggy for the next 24 hours. DO's AND DON'Ts: - Call your doctor right away if you have a hard abdomen, severe pain, are passing lots of bright red blood or clots. - Call your doctor if you develop any rashes, hives or difficulty breathing. - Let your doctor know if you have not had a bowel movement by 3 days after your procedure. - If you take 81 mg aspirin for your heart it is safe to resume this medication. - If you take other blood thinner medications your doctor will instruct you when these can safely be resumed. - Do NOT drive for 24 hours. - Do NOT operate machinery such as power tools, lawn mowers, snow blowers, sewing machines, etc. for 24 hours. - Avoid alcoholic beverages and drugs for allergies, nerves, or sleep. - Do NOT stay alone. Do NOT leave your child unattended. - Do NOT make important personal or business decisions or sign any legal documents. - Eat solid foods and drink liquids in smaller amounts than usual until normal appetite returns. If you should experience an upset stomach, liquids high in sugar content (soda, Jason-Aid, non-acid juices) are recommended. - You can resume normal activities tomorrow. FOLLOW UP & RECOMMENDATIONS: -Please call the office and make a follow up appointment to see me as needed -Notify the doctor if you have any problems. -Repeat colonoscopy in 3 years with a 2-day bowel prep -Follow up with PCP. -Office number [phone]. [facility] Work Phone: Reason for referral (narrative)No reason for referral information availableMer[facility] St[facility] Work Phone: Summary Purpose Family History No Family History Records Found Relationship Condition Age at Onset Recorded Date/T leelee brother Diabetes mellitus Unknown fatherDiabetes mellitusUnknownDeceasedUnknownfamily memberDeceasedUnknownmother HypertensionUnknown Advance Directives No Advanced Directives Records Found Advance Directive Response Recorded Date/ Time Advance Directives No October 09 9:41am Advance Directive Response Recorded Date/ Time Advance Directives No April 9:44am Advance Directive Response Recorded Date/ Time Advance Directives No April 8:44am Reason for Referral Reason *Waiting for appt R knee pain, on 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 Diagnosis 1 Right medial knee pa in (M25.561) Referral Organization [facility] Referring Provider First Name Tiara Referring Provider Last Name Srinivasan Referring Provider Specialty Family [facility] cine Referred Organization [facility] Referred Provider Colton Lopez Referred Address [address] [place], [place],[address] Referred Provider Specialty Orthopedic S urgery Referral Priority Routine General Notes Justine Schmidt 02:18:37 PM >received today, sent P2P Chief Complaint and Reason for Visit Chief Complaint uti or yeast infecti on allergy shotReason for VisitDysuria Chief Complaint allergy shot UA, burning, feeling weak Chief Complaint allergy shot Urinary Tract Infection / UTI Chief Complaint allergy shot R30.0 Urinary Tract Infection / UTI UTI/ E- ColiReason for VisitCough Dysuria Chief Complaint Admit Date sinus infection August 07, 2024 9:45am Screening August 21, 2024 7 :47am Screening August 21, 2024 8 :11am Reason for Visit Admit Date Sinusitis, acute maxillary July 9:45am Chief Complaint Admit Date motion sickness prescription December 03, 2024 2:32pm Chief Complaint Admit Date motion sickness prescription December 03, 2024 2:32pm Allergy Shot February 19, 2025 11:3 6am Reason for Visit Admit Date Chronic tension headaches December 03 2:32pm Motion sickness December 03, 2024 2:3 2pm Skin lesion of left arm December 03, 2024 2:32pm Seasonal allergic rhinitis February 19 11:36am Chief Complaint Admit Date Allergy Shot February 19, 2025 11:3 6am Congestion,cough March 20, 2025 1: 22pm Reason for Visit Admit Date Seasonal allergic rhinitis February 19 11:36am Maxillary sinusitis March 20, 2025 1: 22pm Additional Source Comments INFORMATION SOURCE (unrecogn ized section and content) DATE CREATED AUTHOR 03/31/2022 The DATE CREATED AUTHOR 'S ORGANIZ ATION 08/30/2024 The [facility]cludes [facility] DATE CREATED AUTHOR AUTHOR'S ORGANIZ ATION 01/12/2025 [facility] EPIC DATE CREATED AUTHOR AUTHOR'S ORGANIZ ATION 04/12/2025 [facility] REASON FOR VISIT (unrecogniz ed section and content) ReasonCommentsSkin CheckSuspicious Skin LesionReasonCommentsSuspicious Skin LesionReasonOnset MyqrDkrbmwndAdmf78/08/2025ReasonCommentsPainReasonCommentsCyst ReasonCommentsExcision Care Teams (unrecognized sec tion and content) Team Status: Active Member Role Status Dates Tiara Mattson MD Primary Care Provider Active Team Status: Inactive Member Role Status Dates Tiara Mattson MD Primary Care Provide r, Attending Provider Active Start: December 08, 2023 End: December 08, 2023 Team Status: Inactive Member Role Status Dates Tiara Mattson MD Primary Care Provide r, Attending Provider Active Start: February 22, 2024 End: February 22, 2024 Team Status: Active Member Role Status Dates Tiara Mattson MD Primary Care Provide r, Attending Provider Active Start: March 23, 2024 Team Status: Inactive Member Role Status Dates Tiara Mattson MD Primary Care Provide r, Attending Provider Active Start: May 07, 2024 End: May 07, 2024 Team Status: Inactive Member Role Status Dates Tiara Mattson MD Attending Provider Active St art: May 07, 2024 End: May 07, 2024 Team Status: Active Member Role Status Dates PHYSICIAN NO FAMILY Primary Care Provider Active Team Status: Inactive Member Role Status Dates Tiara Mattson MD Attending Provider Active St art: May 07, 2024 End: May 07HYSICIAN NO FAMILYPrimary Care ProviderActiveStart: May 07, 2024 End: May 07, 2024 Team Status: Inactive Member Role Status Dates PHYSICIAN NO FAMILY Primary Care Provider Active Start: May 10, 2024 End: May 10, 2024Tiara Mattson MDAttending ProviderActiveStart: May 10, 2024 End: May 10, 2024Team MemberRelationshipSpecialtyStart DateEnd Date Tiara Mattson MD [address] [place] [phone] PCP - GeneralFamily Rdphvwpq26/2/23Team MemberRelationshipSpecialtyStart DateEnd Date Tiara Mattson MD [address] [place] [facility] [phone] [facility] Yzjzzqbl19/2/23Team MemberRelationshipSpecialtyStart DateEnd Date Tiara Mattson MD [address] [place] [facility] [phone] [facility] - [facility] Atugkotk41/2/23Team MemberRelationshipSpecialtyStart DateEnd Date Tiara Mattson MD [address] [place] [facility] [address] [facility] Team Status: Inactive Member Role Status Dates PHYSICIAN NO FAMILY Primary Care Provider Active Start: August 07, 2024 End: August 07, 2024Balwinder Miner ProviderActiveStart: August 07, 2024 End: August 07, 2024 Team Status: Inactive Member Role Status Dates Vanda Hinton DO Attending Provider Active St art: August 21, 2024 End: August 21, 2024Lyudmila Miner Care ProviderActiveStart: August 21, 2024 End: August 21, 2024 Team Status: Active Member Role Status Dates Vanda Hinton DO Attending Provider, Other Provider Active Start: August 21, 2024 Lyudmila Miner ProviderActiveStart: August 21, 2024 Team MemberRelationshipSpecialtyStart DateEnd Date Tiara Mattson MD [address] [place] [facility] [place] [address] [facility] - [facility] Davdvixp35/2/23Team MemberRelationshipSpecialtyStart DateEnd Date Tiara Mattson MD PCP - [facility]05/09/23Team MemberRelationshipSpecialtyStart DateEnd Date Tiara Mattson MD PCP - [facility]05/09/23 Team Status: Inactive Member Role Status Dates Tiara Mattson MD Primary Care Provide r, Attending Provider Active Start: December 03, 2024 End: December 03, 2024Team MemberRelationshipSpecialtyStart DateEnd Date Tiara Mattson MD PCP - [facility]05/09/23Team MemberRelationshipSpecialtyStart DateEnd Date Tiara Mattson MD PCP - [facility]05/09/23Team MemberRelationshipSpecialtyStart DateEnd Date Tiara Mattson MD PCP - [facility]05/09/23Team MemberRelationshipSpecialtyStart DateEnd Date Tiara Mattson MD PCP - [facility]05/09/23Team MemberRelationshipSpecialtyStart DateEnd Date Tiara Mattson MD [address] [address] PCP - [facility]05/09/23Team MemberRelationshipSpecialtyStart DateEnd Date Tiara Mattson MD [address] [address] [facility] Chasumye54/2/23 Team Status: Inactive Member Role Status Dates Tiara Mattson MD Primary Care Provider Active Start: December 03, 2024 End: December 03, 2024Balwinder Miner ProviderActiveStart: December 03, 2024 End: December 03, 2024 Team Status: Inactive Member Role Status Dates Tiara Mattson MD Primary Care Provider Active Start: February 19, 2025 End: February 19, 2025Baliwnder Miner ProviderActiveStart: February 19, 2025 End: February 19, 2025 Team Status: Inactive Member Role Status Dates Tiara Mattson MD Primary Care Provider Active Start: March 20, 2025 End: March 20, 2025Kim Lubin APRN HEAD OF ACQUISITIONS-CAttending ProviderActive Start: March 20, 2025 End: March 20, 2025 Goals (unrecognized section and content) Goals may be documented in a n alternate section FOR RECORDS PERTAINING TO PATIENTS WHO ARE OR HAVE BEEN ENROLLED IN A CHEMICAL DEPENDENCY/SUBSTANCEABUSE PROGRAM, SOME INFORMATION MAY BE OMITTED. This clinical summary was aggregated from multiple sources. Caution should be exercised in using it in the provision of clinical care. This summary normalizes information from multiple sources, and as a consequence, information in this document may materially change the coding, format and clinical context of patient data. In addition, data may be omitted in some cases. CLINICAL DECISIONS SHOULD BE BASED ON THE PRIMARY CLINICAL RECORDS. [employer] [facility]. provides no warranty or guarantee of the accuracy or completeness of information in this document.
--- NOTE | 2025-06-25 12:35 | MM_ITS ---
Patient Name: FLOYD HERNANDEZ MR#: [id number] : 1970 Exam Date: 06/25/2025 Ordering Doctor: DR TIARA MATTSON M.D. RADIOLOGY REPORT PROCEDURE: MM TOMOSYNTHESIS SCREENING BI COMPARISON: MM TOMOSYNTHESIS SCREENING BI, 06/04/2024. MM TOMOSYNTHESIS SCREENING BI, 05/20/2023. MG MAMM SCREEN 3D DONNELL CAD, 03/10/2022. MG MAMM SCREEN 3D DONNELL CAD, 03/05/2021. INDICATIONS: screening Calculator Name NCI Breast Cancer Risk Assessment Tool 5 Year Breast Cancer Risk 0.90% Lifetime Breast Cancer Risk 5.90% Personal Breast Cancer No Personal Ovarian Cancer No Treatments None Family Cancers None LOCATION: [facility] BREAST COMPOSITION: There are scattered areas of fibroglandular density. FINDINGS: DIAGNOSTIC CATEGORY 1--NEGATIVE. RIGHT BREAST: No significant suspicious finding. LEFT BREAST: No significant suspicious finding. RECOMMENDATIONS: ROUTINE MAMMOGRAM AND CLINICAL EVALUATION IN 12 MONTHS. Dictated by: Deniz Castelan DO on 06/25/2025 at 14:48 Approved by: Deinz Castelan DO on 06/25/2025 at 14:49
== END 2025-06-25 12:31 | disposition home or self-care (01) ==
LOC: MAMMO 12:30
PROVIDERS: PCP Family Medicine; Visit Provider Family Medicine
DX: Z12.31 Encounter for screening mammogram for malignant neoplasm of breast (principal)
CPT/HCPCS: 77063; 77067